=== PATIENT | female | born 1985 | race Caucasian/White ===

== ENCOUNTER 2017-11-22 13:16 | Inpatient (IN) | payer MEDICAID ==
[~2017-11-22] VITALS: Ht 160 cm; Wt 48.5 kg
[2017-11-22 13:25] VITALS: BP 138/85
[2017-11-22] MEDS ORDERED: LORazepam Inj 2mg/ml 1ml IV ONE ×2 (14:15→19:30)
[2017-11-22] MEDS ORDERED: DiphenhydrAMINE 50mg/ml Inj IVP ONE ×2 (14:15→19:30)
[2017-11-22] MEDS ORDERED: Metoclopramide 10mg/2ml Inj IVP ONE (14:15)
--- NOTE | 2017-11-22 14:53 | Emergency Room Report ---
History of Present Illness General Chief Complaint: Nausea, Vomiting, and Diarrhea Source: Patient Present Illness HPI Patient presents with complaints of nausea and vomiting Reports that last week she has smoked marijuana She smoked more than usual and since then feels that she was having marijuana poisoning as she has had multiple episodes of vomiting and diarrhea She reports being seen at several different emergency rooms And is not feeling well Denies any chest pain denies any shortness of breath denies any back or flank pain she feels dehydrated from the vomiting Denies any dysuria frequency Allergies: Coded Allergies: AMOXICILLIN (Verified Allergy, Unknown, 11/22/17) PENICILLINS (Verified Allergy, Unknown, 11/22/17) Patient History Past Medical History: see triage record Pertinent Family History: none Reviewed Nursing Documentation: PMH: Agreed; PSxH: Agreed Nursing Documentation-PMH Past Medical History: No Stated History Review of Systems All Other Systems: negative except mentioned in HPI Physical Exam Vital Signs Date Time Temp Pulse Resp B/P (MAP) Pulse Ox O2 Delivery O2 Flow Rate FiO2 11/22/17 13:15 98.6 75 18 130/81 99 Room Air 98.6 Sp02 EP Interpretation: reviewed, normal General Appearance: no apparent distress Head: normocephalic, atraumatic Eyes: bilateral eye PERRL, bilateral eye EOMI ENT: hearing grossly normal, normal pharynx, TMs + canals normal, uvula midline Neck: full range of motion, supple, no meningismus, no bony tend Respiratory: lungs clear, normal breath sounds, no rhonchi, no respiratory distress, no retraction, no accessory muscle use Cardiovascular #1: normal peripheral pulses, regular rate, rhythm, no edema, no gallop, no JVD, no murmur Gastrointestinal: normal bowel sounds, non tender, soft, no mass, no organomegaly, non-distended, no guarding, no hernia, no pulsatile mass, no rebound Genitourinary: no CVA tenderness Musculoskeletal: normal inspection Neurologic: oriented x3, responsive, correctional facility nurse III-XII nml as tested, motor strength/ tone normal, sensory intact Psychiatric: mood/affect normal Skin: normal color, no rash, warm/dry, palpation normal Lymphatic: normal inspection, no adenopathy Medical Decision Making Diagnostic Impression: Primary Impression: Nausea, vomiting, and diarrhea Additional Impressions: UTI (urinary tract infection) Persistent vomiting ER Course With the patient's history and examination, multiple differentials considered, including but not limited to , ectopic , ovarian torsion, gastritis, cholecystitis, pancreatitis, appendicitis Patient's urine sample does show positive infection Patient was given further hydration IV antibiotics On reevaluation and felt significantly better reported that she wanted to rest and her mom could pick her up Upon disposition patient's friend was contacted as she has requested a phone call, and she reported that the patient was not feeling better and was still having significant nausea At this time I spoke to the patient again who now reports that she has been feeling increasingly nauseous since she attempted oral intake And therefore the patient was requested for further inpatient care, Labs Test 11/22/17 15:00 11/22/17 15:15 Urine Color Pale yellow Urine Appearance Clear Urine pH 9 (4.5-8.0) Urine Specific [place] 1.015 (1.005-1.035) Urine Protein 2+ (NEGATIVE) Urine Glucose (UA) Negative (NEGATIVE) Urine Ketones 4+ (NEGATIVE) Urine Occult Blood Negative (NEGATIVE) Urine Nitrite Negative (NEGATIVE) Urine Bilirubin Negative (NEGATIVE) Urine Urobilinogen Normal MG/DL (0.0-1.0) Urine Leukocyte Esterase 1+ (NEGATIVE) Urine RBC 2-4 /HPF (0 - 2) Urine WBC 5-10 /HPF (0 - 2) Urine Squamous Epithelial Cells Moderate /LPF (NONE/OCC) Urine Amorphous Sediment Moderate /LPF (NONE) Urine Bacteria Moderate /HPF (NONE) Urine Yeast Few /HPF (NONE) Urine HCG, Qualitative Negative (NEGATIVE) Urine Opiates Screen Negative (NEGATIVE) Urine Barbiturates Screen Positive (NEGATIVE) Phencyclidine (PCP) Screen Negative (NEGATIVE) Urine Amphetamines Screen Negative (NEGATIVE) Urine Benzodiazepines Screen Negative (NEGATIVE) Urine Cocaine Screen Negative (NEGATIVE) Urine Marijuana (THC) Screen Positive (NEGATIVE) White Blood Count 11.7 K/UL (4.8-10.8) Red Blood Count 4.48 M/UL (4.20-5.40) Hemoglobin 13.5 G/DL (12.0-16.0) Hematocrit 39.2 % (37.0-47.0) Mean Corpuscular Volume 88 FL (80-99) Mean Corpuscular Hemoglobin 30.1 PG (27.0-31.0) Mean Corpuscular Hemoglobin Concent 34.3 G/DL (32.0-36.0) Red Cell Distribution Width 11.6 % (11.6-14.8) Platelet Count 395 K/UL (150-450) Mean Platelet Volume 6.1 FL (6.5-10.1) Neutrophils (%) (Auto) 83.9 % (45.0-75.0) Lymphocytes (%) (Auto) 10.8 % (20.0-45.0) Monocytes (%) (Auto) 4.5 % (1.0-10.0) Eosinophils (%) (Auto) 0.1 % (0.0-3.0) Basophils (%) (Auto) 0.7 % (0.0-2.0) Sodium Level 138 MMOL/L (136-145) Potassium Level 3.3 MMOL/L (3.5-5.1) Chloride Level 103 MMOL/L (98-107) Carbon Dioxide Level 22 MMOL/L (21-32) Anion Gap 13 mmol/L (5-15) Blood Urea Nitrogen 12 mg/dL (7-18) Creatinine 0.8 MG/DL (0.55-1.30) Estimat Glomerular Filtration Rate > 60 mL/min (>60) Glucose Level 131 MG/DL (74-106) Calcium Level 9.2 MG/DL (8.5-10.1) Total Bilirubin 0.9 MG/DL (0.2-1.0) Aspartate Amino Transf (AST/SGOT) 12 U/L (15-37) Alanine Aminotransferase (ALT/SGPT) 17 U/L (12-78) Alkaline Phosphatase 48 U/L (46-116) Total Protein 7.7 G/DL (6.4-8.2) Albumin 4.6 G/DL (3.4-5.0) Globulin 3.1 g/dL Albumin/Globulin Ratio 1.5 (1.0-2.7) Lipase 98 U/L (73-393) Last Vital Signs Date Time Temp Pulse Resp B/P (MAP) Pulse Ox O2 Delivery O2 Flow Rate FiO2 11/22/17 13:15 98.6 75 18 130/81 99 Room Air 98.6 Status: improved Disposition: ADMITTED INPATIENT Condition: Serious Scripts Ondansetron Odt* (ZOFRAN ODT*) 4 Mg Tab.rapdis 4 MG ORAL Q6H PRN for Nausea & Vomiting, #12 TAB 0 Refills Prov: Tor Stahl DO 11/22/17 Tor Stahl DO Nov 22, 2017 14:53
[2017-11-22 15:31] LABS: APPEARANCE,URINE CLEAR; BILIRUBIN, URINE NEGATIVE (NEGATIVE); COLOR,URINE PALE YELLOW; GLUCOSE, URINE (UA) NEGATIVE (NEGATIVE); KETONES,URINE 4+ (NEGATIVE); LEUKOCYTE ESTERASE ,URINE 1+ (NEGATIVE); NITRITE,URINE NEGATIVE (NEGATIVE); PH,URINE 9 (4.5-8.0); PROTEIN,URINE 2+ (NEGATIVE); UROBILINOGEN,URINE NORMAL MG/DL (0.0-1.0)
[2017-11-22 15:41] LABS: BASOPHILS % (AUTO) 0.7 % (0.0-2.0); EOSINOPHILS % (AUTO) 0.1 % (0.0-3.0); HEMATOCRIT 39.2 % (37.0-47.0); HEMOGLOBIN 13.5 G/DL (12.0-16.0); LYMPHOCYTES % (AUTO) 10.8 % (20.0-45.0); MEAN CORPUSCULAR VOLUME 88 FL (80-99); MONOCYTES % (AUTO) 4.5 % (1.0-10.0); NEUTROPHILS % (AUTO) 83.9 % (45.0-75.0); PLATELET COUNT 395 K/UL (150-450); RED BLOOD COUNT 4.48 M/UL (4.20-5.40); RED CELL DISTRIBUTION WIDTH 11.6 % (11.6-14.8); WHITE BLOOD COUNT 11.7 K/UL (4.8-10.8)
[2017-11-22 15:42] LABS: ANION GAP 13 mmol/L (5-15); BLOOD UREA NITROGEN 12 mg/dL (7-18); CALCIUM 9.2 MG/DL (8.5-10.1); CARBON DIOXIDE 22 MMOL/L (21-32); CHLORIDE 103 MMOL/L (98-107); CREATININE 0.8 MG/DL (0.55-1.30); POTASSIUM 3.3 MMOL/L (3.5-5.1); SODIUM 138 MMOL/L (136-145)
[2017-11-22 15:43] VITALS: BP 150/80
[2017-11-22 15:47] LABS: ALANINE AMINOTRANSFERASE 17 U/L (12-78); ALBUMIN 4.6 G/DL (3.4-5.0); ALBUMIN/GLOBULIN RATIO 1.5 (1.0-2.7); ALKALINE PHOSPHATASE 48 U/L (46-116); ASPARTATE AMINO TRANSFERASE 12 U/L (15-37); BILIRUBIN,TOTAL 0.9 MG/DL (0.2-1.0)
[2017-11-22 18:08] VITALS: BP 138/74
[2017-11-22] MEDS ORDERED: ZOFRAN ODT4 MG ORAL (18:27)
[2017-11-22 21:00] VITALS: BP 130/72
[2017-11-22] MEDS ORDERED: Mylanta II UD 30ml ORAL PRN (21:00)
[2017-11-22] MEDS ORDERED: Metoclopramide 10mg/2ml Inj IVP PRN (21:00)
[2017-11-22] MEDS ORDERED: Miralax 17gm pkt ORAL PRN (21:00)
[2017-11-22] MEDS ORDERED: Morphine Sulfate 4mg/ml Inj IVP PRN (21:00)
[2017-11-22 21:40] VITALS: BP 128/72
[2017-11-22] MEDS: D5 1/2NS 1,000 ML IV SCH (22:40)
[2017-11-22] MEDS: Heparin 5000 units/ml inj SUBQ SCH (22:42)
[2017-11-22] MEDS ORDERED: Potassium Chloride 20 MEQ in NS 275 ML IVPB ONE (23:00)
[2017-11-23 04:00] VITALS: BP 109/73
[2017-11-23 06:20] LABS: BASOPHILS % (AUTO) 0.7 % (0.0-2.0); EOSINOPHILS % (AUTO) 0.8 % (0.0-3.0); HEMATOCRIT 34.9 % (37.0-47.0); HEMOGLOBIN 12.6 G/DL (12.0-16.0); LYMPHOCYTES % (AUTO) 39.9 % (20.0-45.0); MEAN CORPUSCULAR VOLUME 88 FL (80-99); MONOCYTES % (AUTO) 7.2 % (1.0-10.0); NEUTROPHILS % (AUTO) 51.4 % (45.0-75.0); PLATELET COUNT 354 K/UL (150-450); RED BLOOD COUNT 3.97 M/UL (4.20-5.40); RED CELL DISTRIBUTION WIDTH 12.1 % (11.6-14.8); WHITE BLOOD COUNT 10.4 K/UL (4.8-10.8)
[2017-11-23 06:45] LABS: ALANINE AMINOTRANSFERASE 18 U/L (12-78); ALBUMIN 3.6 G/DL (3.4-5.0); ALBUMIN/GLOBULIN RATIO 1.3 (1.0-2.7); ALKALINE PHOSPHATASE 40 U/L (46-116); AMYLASE 41 U/L (25-115); ANION GAP 9 mmol/L (5-15); ASPARTATE AMINO TRANSFERASE 10 U/L (15-37); BILIRUBIN,TOTAL 0.9 MG/DL (0.2-1.0); BLOOD UREA NITROGEN 10 mg/dL (7-18); CALCIUM 7.9 MG/DL (8.5-10.1); CARBON DIOXIDE 24 MMOL/L (21-32); CHLORIDE 105 MMOL/L (98-107); CREATININE 0.8 MG/DL (0.55-1.30); POTASSIUM 3.4 MMOL/L (3.5-5.1); SODIUM 137 MMOL/L (136-145)
[2017-11-23] MEDS ORDERED: D5 1/2NS 1000ml IV ONE (08:52)
[2017-11-23] MEDS ORDERED: Tubing IV Secondary IV ONE (08:52)
--- NOTE | 2017-11-23 09:03 | Diagnostic Imaging Report ---
Indication: Abdominal pain Technique: Koroma-scale and duplex images of the upper abdomen were obtained Comparison: Findings: Gallbladder is unremarkable, without stones, wall thickening, nor pericholecystic fluid. Sonographic Moreira's sign is negative. Common bile duct measures to mm in diameter. No intrahepatic biliary ductal dilatation. Liver demonstrates normal echogenicity, no focal abnormality. It is slightly enlarged. Portal vein and hepatic veins are patent. Pancreas is unremarkable. Spleen is unremarkable. Left kidney measures 9.8 cm in length. Right kidney measures 10.1 cm length. Both kidneys demonstrate normal echogenicity. There is no hydronephrosis. No focal abnormality . Non-aneurysmal abdominal aorta . Impression: Borderline hepatomegaly. Otherwise unremarkable exam. Negative for gallstones, dilated ducts, or other acute or significant abnormality
[2017-11-23] MEDS: Pantoprazole Inj IV SCH (09:08)
[2017-11-23] MEDS: Heparin 5000 units/ml inj SUBQ SCH ×2 (09:20→20:17)
[2017-11-23] MEDS: D5 1/2NS 1,000 ML IV SCH ×2 (10:13→23:40)
[2017-11-23 12:00] VITALS: BP 150/78
--- NOTE | 2017-11-23 14:26 | GI Initial Consult Note ---
History of Present Illness General Date patient seen: Nov 23, 2017 Time patient seen: 14:19 Reason for Hospitalization: Nausea, Vomiting, and Diarrhea Referring physician: DAYO HEWITT Reason for Consultation: CYCLIC VOMITING SYNDROME Present Illness HPI Patient presents with complaints of nausea and vomiting Reports that last week she has smoked marijuana She smoked more than usual and since then feels that she was having marijuana poisoning as she has had multiple episodes of vomiting and diarrhea She reports being seen at several different emergency rooms And is not feeling well Denies any chest pain denies any shortness of breath denies any back or flank pain she feels dehydrated from the vomiting Denies any dysuria frequency GI consulted for emesis. Pt seen, awake A&Ox4 anxious NAD with no active s/sx of N/V/D. Last episode of emesis x 1 days. Per patient is chronic marijuana, daily use last stopped x 1 week ago prior to her multiple episodes of emesis. Denied hematemesis, coffee grounds. Patient stated she has been to multiple ED' s, given only zofran and then discharged. Previous discharge summary reviewed, patient utox positive for marijuana and barbiturates, in which the patient denies taking any additional medication. No history of endoscopy / colonoscopy. She presents with mild anemia. CT AP negative. Home Meds Active Scripts Ondansetron Odt* (ZOFRAN ODT*) 4 Mg Tab.rapdis, 4 MG ORAL Q6H PRN for Nausea & Vomiting, #12 TAB 0 Refills Prov:Tor Stahl DO 11/22/17 Med list reviewed/reconciled: Yes Allergies: Coded Allergies: AMOXICILLIN (Verified Allergy, Unknown, 11/22/17) PENICILLINS (Verified Allergy, Unknown, 11/22/17) Patient History History Provided By: Patient, Medical Record PMH Narrative Past Medical History: see triage record Pertinent Family History: none Reviewed Nursing Documentation: PMH: Agreed; PSxH: Agreed Nursing Documentation-PMH Past Medical History: No Stated History Social History: Reports: drug use Review of Systems All Other Systems: negative except mentioned in HPI Physical Exam Vital Signs Date Time Temp Pulse Resp B/P (MAP) Pulse Ox O2 Delivery O2 Flow Rate FiO2 11/22/17 13:15 98.6 75 18 130/81 99 Room Air 98.6 Sp02 EP Interpretation: reviewed, normal Labs Laboratory Tests Test 11/22/17 15:00 4/16/18 15:15 11/23/17 05:50 Urine Color Pale yellow Urine Appearance Clear Urine pH 9 (4.5-8.0) Urine Specific [place] 1.015 (1.005-1.035) Urine Protein 2+ (NEGATIVE) H Urine Glucose (UA) Negative (NEGATIVE) Urine Ketones 4+ (NEGATIVE) H Urine Occult Blood Negative (NEGATIVE) Urine Nitrite Negative (NEGATIVE) Urine Bilirubin Negative (NEGATIVE) Urine Urobilinogen Normal MG/DL (0.0-1.0) Urine Leukocyte Esterase 1+ (NEGATIVE) H Urine RBC 2-4 /HPF (0 - 2) H Urine WBC 5-10 /HPF (0 - 2) H Urine Squamous Epithelial Cells Moderate /LPF (NONE/OCC) H Urine Amorphous Sediment Moderate /LPF (NONE) H Urine Bacteria Moderate /HPF (NONE) H Urine Yeast Few /HPF (NONE) H Urine HCG, Qualitative Negative (NEGATIVE) Urine Opiates Screen Negative (NEGATIVE) Urine Barbiturates Screen Positive (NEGATIVE) H Phencyclidine (PCP) Screen Negative (NEGATIVE) Urine Amphetamines Screen Negative (NEGATIVE) Urine Benzodiazepines Screen Negative (NEGATIVE) Urine Cocaine Screen Negative (NEGATIVE) Urine Marijuana (THC) Screen Positive (NEGATIVE) H White Blood Count 11.7 K/UL (4.8-10.8) H 10.4 K/UL (4.8-10.8) Red Blood Count 4.48 M/UL (4.20-5.40) 3.97 M/UL (4.20-5.40) L Hemoglobin 13.5 G/DL (12.0-16.0) 12.6 G/DL (12.0-16.0) Hematocrit 39.2 % (37.0-47.0) 34.9 % (37.0-47.0) L Mean Corpuscular Volume 88 FL (80-99) 88 FL (80-99) Mean Corpuscular Hemoglobin 30.1 PG (27.0-31.0) 31.8 PG (27.0-31.0) H Mean Corpuscular Hemoglobin Concent 34.3 G/DL (32.0-36.0) 36.2 G/DL (32.0-36.0) H Red Cell Distribution Width 11.6 % (11.6-14.8) 12.1 % (11.6-14.8) Platelet Count 395 K/UL (150-450) 354 K/UL (150-450) Mean Platelet Volume 6.1 FL (6.5-10.1) L 6.0 FL (6.5-10.1) L Neutrophils (%) (Auto) 83.9 % (45.0-75.0) H 51.4 % (45.0-75.0) Lymphocytes (%) (Auto) 10.8 % (20.0-45.0) L 39.9 % (20.0-45.0) Monocytes (%) (Auto) 4.5 % (1.0-10.0) 7.2 % (1.0-10.0) Eosinophils (%) (Auto) 0.1 % (0.0-3.0) 0.8 % (0.0-3.0) Basophils (%) (Auto) 0.7 % (0.0-2.0) 0.7 % (0.0-2.0) Sodium Level 138 MMOL/L (136-145) 137 MMOL/L (136-145) Potassium Level 3.3 MMOL/L (3.5-5.1) L 3.4 MMOL/L (3.5-5.1) L Chloride Level 103 MMOL/L (98-107) 105 MMOL/L (98-107) Carbon Dioxide Level 22 MMOL/L (21-32) 24 MMOL/L (21-32) Anion Gap 13 mmol/L (5-15) 9 mmol/L (5-15) Blood Urea Nitrogen 12 mg/dL (7-18) 10 mg/dL (7-18) Creatinine 0.8 MG/DL (0.55-1.30) 0.8 MG/DL (0.55-1.30) Estimat Glomerular Filtration Rate > 60 mL/min (>60) > 60 mL/min (>60) Glucose Level 131 MG/DL (74-106) H 91 MG/DL (74-106) Calcium Level 9.2 MG/DL (8.5-10.1) 7.9 MG/DL (8.5-10.1) L Total Bilirubin 0.9 MG/DL (0.2-1.0) 0.9 MG/DL (0.2-1.0) Aspartate Amino Transf (AST/SGOT) 12 U/L (15-37) L 10 U/L (15-37) L Alanine Aminotransferase (ALT/SGPT) 17 U/L (12-78) 18 U/L (12-78) Alkaline Phosphatase 48 U/L (46-116) 40 U/L (46-116) L Total Protein 7.7 G/DL (6.4-8.2) 6.4 G/DL (6.4-8.2) Albumin 4.6 G/DL (3.4-5.0) 3.6 G/DL (3.4-5.0) Globulin 3.1 g/dL 2.8 g/dL Albumin/Globulin Ratio 1.5 (1.0-2.7) 1.3 (1.0-2.7) Lipase 98 U/L (73-393) 87 U/L (73-393) Activated Partial Thromboplast Time 32 SEC (23-33) Amylase Level 41 U/L (25-115) General Appearance: well appearing, no apparent distress, alert, thin Head: normocephalic EENT: PERRL/EOMI, normal ENT inspection Neck: supple Respiratory: normal breath sounds, no respiratory distress Cardiovascular: normal rate Gastrointestinal: normal inspection, non tender, soft, normal bowel sounds, non -distended Rectal: deferred Genitourinary: no CVA tenderness Musculoskeletal: normal inspection, back normal Neurologic: normal inspection, alert, oriented x3, responsive Psychiatric: normal inspection, judgement/insight normal, memory normal Skin: normal inspection, normal color, no rash, warm/dry, palpation normal, well hydrated Lymphatic: normal inspection, no adenopathy Current Medications Current Medications Medications (Trade) Dose Ordered Sig/Gracie Route PRN Reason Start Time Stop Time Status Last Admin Dose Admin Acetaminophen (Tylenol) 650 mg Q4H PRN ORAL fever 11/22/17 21:00 12/22/17 20:59 Al Hydroxide/Mg Hydroxide (Mylanta II) 30 ml Q6H PRN ORAL dyspepsia 11/22/17 21:00 12/22/17 20:59 Dextrose (Dextrose 50%) 50 ml STAT PRN IV BS less than 60mg/dl 11/22/17 21:00 12/22/17 20:59 Dextrose/Sodium Chloride 1,000 ml @ 75 mls/hr [id number] IV 11/22/17 20:53 12/22/17 20:52 11/23/17 10:13 Diphenhydramine HCl (Benadryl) 25 mg Q6H PRN ORAL Itching/Pruritis 11/22/17 21:00 12/22/17 20:59 Heparin Sodium (Porcine) (Heparin 5000 units/ml) 5,000 units EVERY 12 HOURS SUBQ 11/22/17 21:00 12/22/17 20:59 11/23/17 09:20 Lorazepam (Ativan 2mg/ml 1ml) 1 mg EVERY 4 HOURS PRN IV agitation 11/22/17 21:00 11/29/17 20:59 Metoclopramide HCl (Reglan) 10 mg EVERY 6 HOURS PRN IVP servere nauasea 11/22/17 21:00 12/22/17 20:59 Morphine Sulfate (Morphine Sulfate) 2 mg EVERY 4 HOURS PRN IVP severe Pain (Pain Scale 7-10) 11/22/17 21:00 11/29/17 20:59 Nitroglycerin (Ntg) 0.4 mg Q5M X 3 DOSES PRN SL Prn Chest Pain 11/22/17 21:00 12/22/17 20:59 Ondansetron HCl (Zofran) 4 mg Q6H PRN IVP Nausea & Vomiting 11/22/17 21:00 12/22/17 20:59 Pantoprazole (Protonix) 40 mg DAILY IV 11/23/17 09:00 12/23/17 08:59 11/23/17 09:08 Polyethylene Glycol (Miralax) 17 gm HSPRN PRN ORAL Constipation 11/22/17 21:00 12/22/17 20:59 Promethazine HCl (Phenergan) 25 mg EVERY 8 HOURS PRN IV refractory nausea 11/22/17 21:00 12/22/17 20:59 Temazepam (Restoril) 15 mg HSPRN PRN ORAL Insomnia 11/22/17 21:00 11/29/17 20:59 GI: Plan Problems: (1) Cyclic vomiting syndrome (2) Persistent vomiting (3) Nausea, vomiting, and diarrhea Plan abdominal US reviewed >> unremarkable Utox >> positive for MJ and barbiturates UCx negative symptomatic treatment zofran prn, reglan for persistent vomiting adv to regular diet electrolyte replacement MJ cessation education given ppi daily fu labs Discussed with Dr. Negro. Thank you for this patient referral, we will follow. Sherine Tabor N.P. Nov 23, 2017 14:26
--- NOTE | 2017-11-23 14:32 | History and Physical ---
History of Present Illness General Date patient seen: Nov 23, 2017 Reason for Hospitalization: Nausea, Vomiting, and Diarrhea Present Illness HPI 32 year old female with PMHx of cyclical vomiting presented to ER with complaints of nausea and vomiting after she smoked marijuana She smoked more than usual and since then feels that she was having marijuana poisoning. She reports being seen at several different emergency rooms. She is admitted for intractabel nausea and vomiting and not being able to eat. Allergies: Coded Allergies: AMOXICILLIN (Verified Allergy, Unknown, 11/22/17) PENICILLINS (Verified Allergy, Unknown, 11/22/17) Medication History Scheduled PRN Ondansetron Odt* (Zofran Odt*), 4 MG ORAL Q6H PRN for Nausea & Vomiting Patient History Healthcare decision maker Resuscitation status Full Code Advanced Directive on File No Past Medical/Surgical History Past Medical/Surgical History: (1) Persistent vomiting Review of Systems All Other Systems: negative except mentioned in HPI Physical Exam General Appearance: WD/WN Lines, tubes and drains: peripheral HEENT: normocephalic Neck: non-tender, normal alignment Respiratory/Chest: chest wall non-tender, normal breath sounds Cardiovascular/Chest: normal peripheral pulses, normal rate Abdomen: normal bowel sounds, non tender Genitourinary/Rectal: normal genital exam Skin Exam: normal pigmentation Neurologic: prescriptionist II-XII grossly normal Last 24 Hour Vital Signs Date Time Temp Pulse Resp B/P (MAP) Pulse Ox O2 Delivery O2 Flow Rate FiO2 11/23/17 12:00 97.7 75 18 150/78 99 Room Air 97.7 11/23/17 04:00 97.7 70 16 109/73 97 Room Air 97.7 11/22/17 21:55 98.1 70 17 128/72 99 Room Air 98.1 11/22/17 21:40 98.1 70 17 128/72 99 Room Air 98.1 11/22/17 21:00 98.4 72 16 130/72 98 Room Air 98.4 11/22/17 18:08 98.6 75 18 138/74 97 Room Air 98.6 11/22/17 15:43 98.6 78 18 150/80 99 Room Air 98.6 Intake and Output 11/22/17 11/23/17 19:00 07:00 Intake Total 700 ml Balance 700 ml Intake IV Total 700 ml # Voids 1 1 Laboratory Tests Test 11/22/17 15:00 11/22/17 15:15 11/23/17 05:50 Urine Color Pale yellow Urine Appearance Clear Urine pH 9 (4.5-8.0) Urine Specific [place] 1.015 (1.005-1.035) Urine Protein 2+ (NEGATIVE) H Urine Glucose (UA) Negative (NEGATIVE) Urine Ketones 4+ (NEGATIVE) H Urine Occult Blood Negative (NEGATIVE) Urine Nitrite Negative (NEGATIVE) Urine Bilirubin Negative (NEGATIVE) Urine Urobilinogen Normal MG/DL (0.0-1.0) Urine Leukocyte Esterase 1+ (NEGATIVE) H Urine RBC 2-4 /HPF (0 - 2) H Urine WBC 5-10 /HPF (0 - 2) H Urine Squamous Epithelial Cells Moderate /LPF (NONE/OCC) H Urine Amorphous Sediment Moderate /LPF (NONE) H Urine Bacteria Moderate /HPF (NONE) H Urine Yeast Few /HPF (NONE) H Urine HCG, Qualitative Negative (NEGATIVE) Urine Opiates Screen Negative (NEGATIVE) Urine Barbiturates Screen Positive (NEGATIVE) H Phencyclidine (PCP) Screen Negative (NEGATIVE) Urine Amphetamines Screen Negative (NEGATIVE) Urine Benzodiazepines Screen Negative (NEGATIVE) Urine Cocaine Screen Negative (NEGATIVE) Urine Marijuana (THC) Screen Positive (NEGATIVE) H White Blood Count 11.7 K/UL (4.8-10.8) H 10.4 K/UL (4.8-10.8) Red Blood Count 4.48 M/UL (4.20-5.40) 3.97 M/UL (4.20-5.40) L Hemoglobin 13.5 G/DL (12.0-16.0) 12.6 G/DL (12.0-16.0) Hematocrit 39.2 % (37.0-47.0) 34.9 % (37.0-47.0) L Mean Corpuscular Volume 88 FL (80-99) 88 FL (80-99) Mean Corpuscular Hemoglobin 30.1 PG (27.0-31.0) 31.8 PG (27.0-31.0) H Mean Corpuscular Hemoglobin Concent 34.3 G/DL (32.0-36.0) 36.2 G/DL (32.0-36.0) H Red Cell Distribution Width 11.6 % (11.6-14.8) 12.1 % (11.6-14.8) Platelet Count 395 K/UL (150-450) 354 K/UL (150-450) Mean Platelet Volume 6.1 FL (6.5-10.1) L 6.0 FL (6.5-10.1) L Neutrophils (%) (Auto) 83.9 % (45.0-75.0) H 51.4 % (45.0-75.0) Lymphocytes (%) (Auto) 10.8 % (20.0-45.0) L 39.9 % (20.0-45.0) Monocytes (%) (Auto) 4.5 % (1.0-10.0) 7.2 % (1.0-10.0) Eosinophils (%) (Auto) 0.1 % (0.0-3.0) 0.8 % (0.0-3.0) Basophils (%) (Auto) 0.7 % (0.0-2.0) 0.7 % (0.0-2.0) Sodium Level 138 MMOL/L (136-145) 137 MMOL/L (136-145) Potassium Level 3.3 MMOL/L (3.5-5.1) L 3.4 MMOL/L (3.5-5.1) L Chloride Level 103 MMOL/L (98-107) 105 MMOL/L (98-107) Carbon Dioxide Level 22 MMOL/L (21-32) 24 MMOL/L (21-32) Anion Gap 13 mmol/L (5-15) 9 mmol/L (5-15) Blood Urea Nitrogen 12 mg/dL (7-18) 10 mg/dL (7-18) Creatinine 0.8 MG/DL (0.55-1.30) 0.8 MG/DL (0.55-1.30) Estimat Glomerular Filtration Rate > 60 mL/min (>60) > 60 mL/min (>60) Glucose Level 131 MG/DL (74-106) H 91 MG/DL (74-106) Calcium Level 9.2 MG/DL (8.5-10.1) 7.9 MG/DL (8.5-10.1) L Total Bilirubin 0.9 MG/DL (0.2-1.0) 0.9 MG/DL (0.2-1.0) Aspartate Amino Transf (AST/SGOT) 12 U/L (15-37) L 10 U/L (15-37) L Alanine Aminotransferase (ALT/SGPT) 17 U/L (12-78) 18 U/L (12-78) Alkaline Phosphatase 48 U/L (46-116) 40 U/L (46-116) L Total Protein 7.7 G/DL (6.4-8.2) 6.4 G/DL (6.4-8.2) Albumin 4.6 G/DL (3.4-5.0) 3.6 G/DL (3.4-5.0) Globulin 3.1 g/dL 2.8 g/dL Albumin/Globulin Ratio 1.5 (1.0-2.7) 1.3 (1.0-2.7) Lipase 98 U/L (73-393) 87 U/L (73-393) Activated Partial Thromboplast Time 32 SEC (23-33) Amylase Level 41 U/L (25-115) Microbiology Date/Time Source Procedure Growth Status 11/22/17 15:00 Urine,Clean Catch Urine Culture - Preliminary Resulted Height (Feet): 5 Height (Inches): 3.00 Weight (Pounds): 107 Medications Current Medications Medications (Trade) Dose Ordered Sig/Gracie Route PRN Reason Start Time Stop Time Status Last Admin Dose Admin Acetaminophen (Tylenol) 650 mg Q4H PRN ORAL fever 11/22/17 21:00 12/22/17 20:59 Al Hydroxide/Mg Hydroxide (Mylanta II) 30 ml Q6H PRN ORAL dyspepsia 11/22/17 21:00 12/22/17 20:59 Dextrose (Dextrose 50%) 50 ml STAT PRN IV BS less than 60mg/dl 11/22/17 21:00 12/22/17 20:59 Dextrose/Sodium Chloride 1,000 ml @ 75 mls/hr [id number] IV 11/22/17 20:53 12/22/17 20:52 11/23/17 10:13 Diphenhydramine HCl (Benadryl) 25 mg Q6H PRN ORAL Itching/Pruritis 11/22/17 21:00 12/22/17 20:59 Heparin Sodium (Porcine) (Heparin 5000 units/ml) 5,000 units EVERY 12 HOURS SUBQ 11/22/17 21:00 12/22/17 20:59 11/23/17 09:20 Lorazepam (Ativan 2mg/ml 1ml) 1 mg EVERY 4 HOURS PRN IV agitation 11/22/17 21:00 11/29/17 20:59 Metoclopramide HCl (Reglan) 10 mg EVERY 6 HOURS PRN IVP servere nauasea 11/22/17 21:00 12/22/17 20:59 Morphine Sulfate (Morphine Sulfate) 2 mg EVERY 4 HOURS PRN IVP severe Pain (Pain Scale 7-10) 11/22/17 21:00 11/29/17 20:59 Nitroglycerin (Ntg) 0.4 mg Q5M X 3 DOSES PRN SL Prn Chest Pain 11/22/17 21:00 12/22/17 20:59 Ondansetron HCl (Zofran) 4 mg Q6H PRN IVP Nausea & Vomiting 11/22/17 21:00 12/22/17 20:59 Pantoprazole (Protonix) 40 mg DAILY IV 11/23/17 09:00 12/23/17 08:59 11/23/17 09:08 Polyethylene Glycol (Miralax) 17 gm HSPRN PRN ORAL Constipation 11/22/17 21:00 12/22/17 20:59 Promethazine HCl (Phenergan) 25 mg EVERY 8 HOURS PRN IV refractory nausea 11/22/17 21:00 12/22/17 20:59 Temazepam (Restoril) 15 mg HSPRN PRN ORAL Insomnia 11/22/17 21:00 11/29/17 20:59 Assessment/Plan Problem List: (1) Persistent vomiting ICD Codes: R11.10 - Vomiting, unspecified SNOMED: 508423124 (2) Cyclic vomiting syndrome ICD Codes: G43.A0 - Cyclical vomiting, not intractable SNOMED: 54306104 Assessment/Plan NPO iv fluids symptomatic treatment GI evaluation Lexx Melissa MD Nov 23, 2017 14:32
[2017-11-23 16:00] VITALS: BP 123/75
[2017-11-23 20:00] VITALS: BP 135/92
[2017-11-23] MEDS ORDERED: GI Cocktail 120ml ORAL SCH (22:00)
[2017-11-24] VITALS (8 sets, daily range): BP systolic 88–145; BP diastolic 57–89
[2017-11-24] MEDS: LORazepam Inj 2mg/ml 1ml IV PRN ×2 (02:38→09:01)
[2017-11-24] MEDS: Pantoprazole Inj IV SCH (08:08)
[2017-11-24] MEDS: Heparin 5000 units/ml inj SUBQ SCH ×2 (08:11→20:16)
[2017-11-24] MEDS ORDERED: D5 1/2NS 1000ml IV ONE ×2 (09:49→16:58)
--- NOTE | 2017-11-24 09:53 | GI Progress Note ---
Assessment/Plan Problems: (1) Nausea, vomiting, and diarrhea ICD Codes: R11.2 - Nausea with vomiting, unspecified; R19.7 - Diarrhea, unspecified SNOMED: 3068042 (2) Persistent vomiting ICD Codes: R11.10 - Vomiting, unspecified SNOMED: 243680531 (3) Cyclic vomiting syndrome ICD Codes: G43.A0 - Cyclical vomiting, not intractable SNOMED: 94849696 Status: stable Status Narrative Discussed with Dr. Negro. Assessment/Plan abdominal US reviewed >> unremarkable Utox >> positive for MJ and barbiturates UCx negative symptomatic treatment zofran prn, reglan ATC for persistent vomiting adv to regular diet electrolyte replacement MJ cessation education given ppi daily fu labs Subjective Subjective had episode of emesis this morning Objective Last 24 Hour Vital Signs Date Time Temp Pulse Resp B/P (MAP) Pulse Ox O2 Delivery O2 Flow Rate FiO2 11/24/17 08:00 97.4 74 20 111/73 100 Room Air 97.4 11/24/17 04:00 98.4 63 18 127/74 100 Room Air 98.4 11/24/17 00:00 97.6 62 19 126/77 99 Room Air 97.6 11/23/17 20:00 98.2 65 20 135/92 100 Room Air 98.2 11/23/17 19:07 98.3 11/23/17 16:00 98.3 112 18 123/75 98 Room Air 98.3 11/23/17 12:00 97.7 75 18 150/78 99 Room Air 97.7 Intake and Output 11/23/17 11/24/17 19:00 07:00 Intake Total 1425 ml 962.5 ml Balance 1425 ml 962.5 ml Intake Oral 600 ml 100 ml IV Total 825 ml 862.5 ml # Voids 2 2 Height (Feet): 5 Height (Inches): 3.00 Weight (Pounds): 107 General Appearance: WD/WN, no apparent distress, alert Cardiovascular: normal rate Respiratory/Chest: normal breath sounds, no respiratory distress Abdominal Exam: normal bowel sounds, non tender, soft Extremities: normal range of motion, non-tender Sherine Tabor N.P. Nov 24, 2017 09:53
[2017-11-24] MEDS: D5 1/2NS 1,000 ML IV SCH (11:38)
--- NOTE | 2017-11-24 11:57 | Pulmonology Progress Note ---
Assessment/Plan Problems: (1) Persistent vomiting (2) Cyclic vomiting syndrome Assessment/Plan still can't eat iv fluids water only Subjective Constitutional: Reports: no symptoms Respiratory: Reports: no symptoms Allergies: Coded Allergies: AMOXICILLIN (Verified Allergy, Unknown, 11/22/17) PENICILLINS (Verified Allergy, Unknown, 11/22/17) Objective Last 24 Hour Vital Signs Date Time Temp Pulse Resp B/P (MAP) Pulse Ox O2 Delivery O2 Flow Rate FiO2 11/24/17 11:38 98.4 64 16 118/75 99 Room Air 98.4 11/24/17 08:00 97.4 74 20 111/73 100 Room Air 97.4 11/24/17 04:00 98.4 63 18 127/74 100 Room Air 98.4 11/24/17 00:00 97.6 62 19 126/77 99 Room Air 97.6 11/23/17 20:00 98.2 65 20 135/92 100 Room Air 98.2 11/23/17 19:07 98.3 11/23/17 16:00 98.3 112 18 123/75 98 Room Air 98.3 11/23/17 12:00 97.7 75 18 150/78 99 Room Air 97.7 Intake and Output 11/23/17 11/24/17 19:00 07:00 Intake Total 1425 ml 962.5 ml Balance 1425 ml 962.5 ml Intake Oral 600 ml 100 ml IV Total 825 ml 862.5 ml # Voids 2 2 General Appearance: WD/WN HEENT: normocephalic, atraumatic Respiratory/Chest: chest wall non-tender, lungs clear Cardiovascular: normal rate, regularly irregular Genitourinary: normal external genitalia Extremities: no clubbing Skin: no lesions Microbiology Date/Time Source Procedure Growth Status 11/22/17 15:00 Urine,Clean Catch Urine Culture - Preliminary Mixed Gram Positive Organism Resulted Current Medications Medications (Trade) Dose Ordered Sig/Gracie Route PRN Reason Start Time Stop Time Status Last Admin Dose Admin Acetaminophen (Tylenol) 650 mg Q4H PRN ORAL fever 11/22/17 21:00 12/22/17 20:59 Al Hydroxide/Mg Hydroxide (Mylanta II) 30 ml Q6H PRN ORAL dyspepsia 11/22/17 21:00 12/22/17 20:59 Dextrose (Dextrose 50%) 25 ml STAT PRN IV BS 60-69mg/dl 11/23/17 16:00 12/23/17 15:59 Dextrose (Dextrose 50%) 50 ml STAT PRN IV BS less than 60mg/dl 11/22/17 21:00 12/22/17 20:59 Dextrose/Sodium Chloride 1,000 ml @ 75 mls/hr [id number] IV 11/22/17 20:53 12/22/17 20:52 11/24/17 11:38 Diphenhydramine HCl (Benadryl) 25 mg Q6H PRN ORAL Itching/Pruritis 11/22/17 21:00 12/22/17 20:59 Heparin Sodium (Porcine) (Heparin 5000 units/ml) 5,000 units EVERY 12 HOURS SUBQ 11/22/17 21:00 12/22/17 20:59 11/24/17 08:11 Lorazepam (Ativan 2mg/ml 1ml) 1 mg EVERY 4 HOURS PRN IV agitation 11/22/17 21:00 11/29/17 20:59 11/24/17 09:01 Metoclopramide HCl (Reglan) 5 mg QID ORAL 11/24/17 13:00 12/24/17 12:59 Metoclopramide HCl (Reglan) 10 mg EVERY 6 HOURS PRN IVP servere nauasea 11/22/17 21:00 12/22/17 20:59 Morphine Sulfate (Morphine Sulfate) 2 mg EVERY 4 HOURS PRN IVP severe Pain (Pain Scale 7-10) 11/22/17 21:00 11/29/17 20:59 11/23/17 19:07 Nitroglycerin (Ntg) 0.4 mg Q5M X 3 DOSES PRN SL Prn Chest Pain 11/22/17 21:00 12/22/17 20:59 Ondansetron HCl (Zofran) 4 mg Q6H PRN IVP Nausea & Vomiting 11/22/17 21:00 12/22/17 20:59 11/24/17 08:39 Pantoprazole (Protonix) 40 mg DAILY IV 11/23/17 09:00 12/23/17 08:59 11/24/17 08:08 Polyethylene Glycol (Miralax) 17 gm HSPRN PRN ORAL Constipation 11/22/17 21:00 12/22/17 20:59 Temazepam (Restoril) 15 mg HSPRN PRN ORAL Insomnia 11/22/17 21:00 11/29/17 20:59 11/23/17 22:04 Lexx Melissa MD Nov 24, 2017 11:57
[2017-11-24] MEDS ORDERED: Sodium Chloride 500ML 500 ML IV ONE (17:00)
[2017-11-25] MEDS: D5 1/2NS 1,000 ML IV SCH ×2 (02:13→15:45)
[2017-11-25 04:00] VITALS: BP 111/65
[2017-11-25 06:20] LABS: BASOPHILS % (AUTO) 0.7 % (0.0-2.0); EOSINOPHILS % (AUTO) 0.5 % (0.0-3.0); HEMATOCRIT 36.7 % (37.0-47.0); HEMOGLOBIN 12.8 G/DL (12.0-16.0); LYMPHOCYTES % (AUTO) 42.5 % (20.0-45.0); MEAN CORPUSCULAR VOLUME 89 FL (80-99); MONOCYTES % (AUTO) 8.2 % (1.0-10.0); NEUTROPHILS % (AUTO) 48.1 % (45.0-75.0); PLATELET COUNT 355 K/UL (150-450); RED BLOOD COUNT 4.11 M/UL (4.20-5.40); WHITE BLOOD COUNT 8.6 K/UL (4.8-10.8)
[2017-11-25 06:30] LABS: ALANINE AMINOTRANSFERASE 13 U/L (12-78); ALBUMIN 3.5 G/DL (3.4-5.0); ALBUMIN/GLOBULIN RATIO 1.2 (1.0-2.7); ALKALINE PHOSPHATASE 43 U/L (46-116); ANION GAP 5 mmol/L (5-15); ASPARTATE AMINO TRANSFERASE 8 U/L (15-37); BILIRUBIN,TOTAL 0.9 MG/DL (0.2-1.0); BLOOD UREA NITROGEN 3 mg/dL (7-18); CALCIUM 8.2 MG/DL (8.5-10.1); CARBON DIOXIDE 29 MMOL/L (21-32); CHLORIDE 104 MMOL/L (98-107); CREATININE 0.8 MG/DL (0.55-1.30); PHOSPHORUS 4.2 MG/DL (2.5-4.9); POTASSIUM 3.2 MMOL/L (3.5-5.1); SODIUM 138 MMOL/L (136-145)
[2017-11-25 08:00] VITALS: BP 105/70
[2017-11-25] MEDS ORDERED: Morphine Sulfate 4mg/ml Inj IVP PRN (08:45)
[2017-11-25] MEDS: Pantoprazole Inj IV SCH (08:54)
[2017-11-25] MEDS: Heparin 5000 units/ml inj SUBQ SCH ×2 (09:01→21:08)
--- NOTE | 2017-11-25 10:04 | GI Progress Note ---
Assessment/Plan Problems: (1) Nausea, vomiting, and diarrhea ICD Codes: R11.2 - Nausea with vomiting, unspecified; R19.7 - Diarrhea, unspecified SNOMED: 4872256 (2) Persistent vomiting ICD Codes: R11.10 - Vomiting, unspecified SNOMED: 044086049 (3) Cyclic vomiting syndrome ICD Codes: G43.A0 - Cyclical vomiting, not intractable SNOMED: 43572693 Status: not improved, unchanged Status Narrative Discussed with Dr. Negro. Assessment/Plan abdominal US reviewed >> unremarkable Utox >> positive for MJ and barbiturates UCx negative symptomatic treatment zofran prn, reglan ATC for persistent vomiting still on FLD electrolyte replacement MJ cessation education given ppi daily dc morphine fu labs Subjective Subjective had another episode of emesis this morning Objective Last 24 Hour Vital Signs Date Time Temp Pulse Resp B/P (MAP) Pulse Ox O2 Delivery O2 Flow Rate FiO2 11/25/17 08:53 98.2 11/25/17 08:00 98.2 77 18 105/70 99 98.2 11/25/17 04:00 98.3 66 18 111/65 100 Room Air 98.3 11/24/17 23:55 98.2 85 18 128/75 100 Room Air 98.2 11/24/17 20:00 98.5 79 18 145/75 100 Room Air 98.5 11/24/17 18:15 76 130/89 11/24/17 15:34 98.1 72 18 88/57 100 Room Air 98.1 11/24/17 11:38 98.4 64 16 118/75 99 Room Air 98.4 Intake and Output 11/24/17 11/25/17 19:00 07:00 Intake Total 1407.5 ml 1325 ml Balance 1407.5 ml 1325 ml Intake Oral 120 ml 500 ml IV Total 1287.5 ml 825 ml # Voids 3 4 # Bowel Movements 1 Laboratory Tests Test 11/25/17 05:35 White Blood Count 8.6 K/UL (4.8-10.8) Red Blood Count 4.11 M/UL (4.20-5.40) L Hemoglobin 12.8 G/DL (12.0-16.0) Hematocrit 36.7 % (37.0-47.0) L Mean Corpuscular Volume 89 FL (80-99) Mean Corpuscular Hemoglobin 31.2 PG (27.0-31.0) H Mean Corpuscular Hemoglobin Concent 34.9 G/DL (32.0-36.0) Red Cell Distribution Width 12.0 % (11.6-14.8) Platelet Count 355 K/UL (150-450) Mean Platelet Volume 6.0 FL (6.5-10.1) L Neutrophils (%) (Auto) 48.1 % (45.0-75.0) Lymphocytes (%) (Auto) 42.5 % (20.0-45.0) Monocytes (%) (Auto) 8.2 % (1.0-10.0) Eosinophils (%) (Auto) 0.5 % (0.0-3.0) Basophils (%) (Auto) 0.7 % (0.0-2.0) Sodium Level 138 MMOL/L (136-145) Potassium Level 3.2 MMOL/L (3.5-5.1) L Chloride Level 104 MMOL/L (98-107) Carbon Dioxide Level 29 MMOL/L (21-32) Anion Gap 5 mmol/L (5-15) Blood Urea Nitrogen 3 mg/dL (7-18) L Creatinine 0.8 MG/DL (0.55-1.30) Estimat Glomerular Filtration Rate > 60 mL/min (>60) Glucose Level 104 MG/DL (74-106) Calcium Level 8.2 MG/DL (8.5-10.1) L Phosphorus Level 4.2 MG/DL (2.5-4.9) Magnesium Level 1.9 MG/DL (1.8-2.4) Total Bilirubin 0.9 MG/DL (0.2-1.0) Aspartate Amino Transf (AST/SGOT) 8 U/L (15-37) L Alanine Aminotransferase (ALT/SGPT) 13 U/L (12-78) Alkaline Phosphatase 43 U/L (46-116) L Total Protein 6.3 G/DL (6.4-8.2) L Albumin 3.5 G/DL (3.4-5.0) Globulin 2.8 g/dL Albumin/Globulin Ratio 1.2 (1.0-2.7) Height (Feet): 5 Height (Inches): 3.00 Weight (Pounds): 107 General Appearance: WD/WN, no apparent distress, alert, thin Cardiovascular: normal rate Respiratory/Chest: normal breath sounds, no respiratory distress Abdominal Exam: normal bowel sounds, non tender, soft Extremities: normal range of motion, non-tender Sherine Tabor N.P. Nov 25, 2017 10:04
[2017-11-25] MEDS: Norco 5mg/325mg tab ORAL PRN ×2 (10:52→17:09)
[2017-11-25 12:00] VITALS: BP 139/89
[2017-11-25] MEDS: LORazepam Inj 2mg/ml 1ml IV PRN (12:48)
--- NOTE | 2017-11-25 14:56 | Pulmonology Progress Note ---
Assessment/Plan Problems: (1) Persistent vomiting (2) Cyclic vomiting syndrome Assessment/Plan try to eat liquid diet this morning but couldn't still can't eat iv fluids Subjective ROS Limited/Unobtainable: No Constitutional: Reports: no symptoms HEENT: Repors: no symptoms Respiratory: Reports: no symptoms Allergies: Coded Allergies: AMOXICILLIN (Verified Allergy, Unknown, 11/22/17) PENICILLINS (Verified Allergy, Unknown, 11/22/17) Objective Last 24 Hour Vital Signs Date Time Temp Pulse Resp B/P (MAP) Pulse Ox O2 Delivery O2 Flow Rate FiO2 11/25/17 12:00 98.0 66 17 139/89 99 98.0 11/25/17 11:51 98.2 11/25/17 10:52 98.2 11/25/17 09:23 98.2 11/25/17 08:53 98.2 11/25/17 08:00 98.2 77 18 105/70 99 98.2 11/25/17 04:00 98.3 66 18 111/65 100 Room Air 98.3 11/24/17 23:55 98.2 85 18 128/75 100 Room Air 98.2 11/24/17 20:00 98.5 79 18 145/75 100 Room Air 98.5 11/24/17 18:15 76 130/89 11/24/17 15:34 98.1 72 18 88/57 100 Room Air 98.1 Intake and Output 11/24/17 11/25/17 19:00 07:00 Intake Total 1407.5 ml 1325 ml Balance 1407.5 ml 1325 ml Intake Oral 120 ml 500 ml IV Total 1287.5 ml 825 ml # Voids 3 4 # Bowel Movements 1 General Appearance: WD/WN HEENT: normocephalic, atraumatic Respiratory/Chest: chest wall non-tender Cardiovascular: normal rate Abdomen: normal bowel sounds, soft, non tender Genitourinary: normal external genitalia Extremities: no clubbing Skin: no rash Microbiology Date/Time Source Procedure Growth Status 11/22/17 19:30 Nasal Nares MRSA Culture - Final NO METHICILLIN RESISTANT STAPH AUREUS... Complete 11/22/17 15:00 Urine,Clean Catch Urine Culture - Final Mixed Gram Positive Organism Complete 11/22/17 19:30 Rectum VRE Culture - Final NO VANCOMYCIN RESISTANT ENTEROCOCCUS ... Complete Laboratory Tests 11/25/17 05:35: White Blood Count 8.6, Red Blood Count 4.11L, Hemoglobin 12.8, Hematocrit 36.7L , Mean Corpuscular Volume 89, Mean Corpuscular Hemoglobin 31.2H, Mean Corpuscular Hemoglobin Concent 34.9, Red Cell Distribution Width 12.0, Platelet Count 355, Mean Platelet Volume 6.0L, Neutrophils (%) (Auto) 48.1, Lymphocytes ( %) (Auto) 42.5, Monocytes (%) (Auto) 8.2, Eosinophils (%) (Auto) 0.5, Basophils (%) (Auto) 0.7, Sodium Level 138, Potassium Level 3.2L, Chloride Level 104, Carbon Dioxide Level 29, Anion Gap 5, Blood Urea Nitrogen 3L, Creatinine 0.8, Estimat Glomerular Filtration Rate > 60, Glucose Level 104, Calcium Level 8.2L, Phosphorus Level 4.2, Magnesium Level 1.9, Total Bilirubin 0.9, Aspartate Amino Transf (AST/SGOT) 8L, Alanine Aminotransferase (ALT/SGPT) 13, Alkaline Phosphatase 43L, Total Protein 6.3L, Albumin 3.5, Globulin 2.8, Albumin/ Globulin Ratio 1.2 Current Medications Medications (Trade) Dose Ordered Sig/Gracie Route PRN Reason Start Time Stop Time Status Last Admin Dose Admin Acetaminophen (Tylenol) 650 mg Q4H PRN ORAL fever 11/22/17 21:00 12/22/17 20:59 Acetaminophen/ Hydrocodone Bitart ([place] 5/325) 1 tab Q4H PRN ORAL Moderate Pain (Pain Scale 4-6) 11/25/17 10:15 12/02/17 10:14 11/25/17 10:52 Al Hydroxide/Mg Hydroxide (Mylanta II) 30 ml Q6H PRN ORAL dyspepsia 11/22/17 21:00 12/22/17 20:59 Dextrose (Dextrose 50%) 25 ml STAT PRN IV BS 60-69mg/dl 11/23/17 16:00 12/23/17 15:59 Dextrose (Dextrose 50%) 50 ml STAT PRN IV BS less than 60mg/dl 11/22/17 21:00 12/22/17 20:59 Dextrose/Sodium Chloride 1,000 ml @ 75 mls/hr [id number] IV 11/22/17 20:53 12/22/17 20:52 11/25/17 02:13 Diphenhydramine HCl (Benadryl) 25 mg Q6H PRN ORAL Itching/Pruritis 11/22/17 21:00 12/22/17 20:59 Heparin Sodium (Porcine) (Heparin 5000 units/ml) 5,000 units EVERY 12 HOURS SUBQ 11/22/17 21:00 12/22/17 20:59 11/25/17 09:01 Lorazepam (Ativan 2mg/ml 1ml) 1 mg EVERY 4 HOURS PRN IV agitation 11/22/17 21:00 11/29/17 20:59 11/25/17 12:48 Metoclopramide HCl (Reglan) 5 mg QID ORAL 11/24/17 13:00 12/24/17 12:59 11/25/17 12:51 Metoclopramide HCl (Reglan) 10 mg EVERY 6 HOURS PRN IVP servere nauasea 11/22/17 21:00 12/22/17 20:59 Nitroglycerin (Ntg) 0.4 mg Q5M X 3 DOSES PRN SL Prn Chest Pain 11/22/17 21:00 12/22/17 20:59 Ondansetron HCl (Zofran) 4 mg Q6H PRN IVP Nausea & Vomiting 11/22/17 21:00 12/22/17 20:59 11/25/17 07:55 Pantoprazole (Protonix) 40 mg DAILY IV 11/23/17 09:00 12/23/17 08:59 11/25/17 08:54 Polyethylene Glycol (Miralax) 17 gm HSPRN PRN ORAL Constipation 11/22/17 21:00 12/22/17 20:59 Temazepam (Restoril) 15 mg HSPRN PRN ORAL Insomnia 11/22/17 21:00 11/29/17 20:59 11/23/17 22:04 Lexx Melissa MD Nov 25, 2017 14:56
[2017-11-25 16:00] VITALS: BP 114/71
[2017-11-25 20:00] VITALS: BP 118/80
[2017-11-26] MEDS ORDERED: Norco 5mg/325mg tab ORAL PRN (00:15)
[2017-11-26 04:00] VITALS: BP 118/59
[2017-11-26] MEDS: D5 1/2NS 1,000 ML IV SCH ×2 (04:53→18:23)
[2017-11-26 06:24] LABS: BASOPHILS % (AUTO) 1.2 % (0.0-2.0); EOSINOPHILS % (AUTO) 3.9 % (0.0-3.0); HEMOGLOBIN 12.7 G/DL (12.0-16.0); LYMPHOCYTES % (AUTO) 43.9 % (20.0-45.0); MEAN CORPUSCULAR VOLUME 89 FL (80-99); MONOCYTES % (AUTO) 8.3 % (1.0-10.0); NEUTROPHILS % (AUTO) 42.7 % (45.0-75.0); PLATELET COUNT 349 K/UL (150-450); RED BLOOD COUNT 4.13 M/UL (4.20-5.40); RED CELL DISTRIBUTION WIDTH 11.9 % (11.6-14.8); WHITE BLOOD COUNT 8.5 K/UL (4.8-10.8)
[2017-11-26 06:42] LABS: ALANINE AMINOTRANSFERASE 20 U/L (12-78); ALBUMIN 3.5 G/DL (3.4-5.0); ALBUMIN/GLOBULIN RATIO 1.2 (1.0-2.7); ALKALINE PHOSPHATASE 41 U/L (46-116); ANION GAP 4 mmol/L (5-15); ASPARTATE AMINO TRANSFERASE 12 U/L (15-37); BILIRUBIN,TOTAL 0.9 MG/DL (0.2-1.0); BLOOD UREA NITROGEN 3 mg/dL (7-18); CALCIUM 9.1 MG/DL (8.5-10.1); CARBON DIOXIDE 28 MMOL/L (21-32); CHLORIDE 106 MMOL/L (98-107); CREATININE 0.9 MG/DL (0.55-1.30); POTASSIUM 4.3 MMOL/L (3.5-5.1); SODIUM 138 MMOL/L (136-145)
[2017-11-26 08:00] VITALS: BP 112/61
[2017-11-26] MEDS: Pantoprazole Inj IV SCH (09:01)
[2017-11-26] MEDS: Heparin 5000 units/ml inj SUBQ SCH ×2 (09:10→22:04)
[2017-11-26] MEDS: Nitroglycerin Subl 0.4mg tab SL PRN ×2 (09:44→10:27)
--- NOTE | 2017-11-26 10:14 | GI Progress Note ---
Assessment/Plan Problems: (1) Nausea, vomiting, and diarrhea ICD Codes: R11.2 - Nausea with vomiting, unspecified; R19.7 - Diarrhea, unspecified SNOMED: 4508610 (2) Persistent vomiting ICD Codes: R11.10 - Vomiting, unspecified SNOMED: 682665223 (3) Cyclic vomiting syndrome ICD Codes: G43.A0 - Cyclical vomiting, not intractable SNOMED: 64662272 Status: not improved, unchanged Status Narrative Discussed with Dr. Negro. Assessment/Plan abdominal US reviewed >> unremarkable Utox >> positive for MJ and barbiturates UCx negative symptomatic treatment zofran prn, reglan ATC for persistent vomiting >> increased reglan dose today still on FLD electrolyte replacement MJ cessation education given ppi daily dc morphine fu labs Subjective Subjective had another episode of emesis this morning no emesis during night Objective Last 24 Hour Vital Signs Date Time Temp Pulse Resp B/P (MAP) Pulse Ox O2 Delivery O2 Flow Rate FiO2 11/26/17 09:44 141/88 11/26/17 08:00 97.0 68 18 112/61 96 97.0 11/26/17 04:00 97.9 75 18 118/59 100 Room Air 97.9 11/25/17 20:00 98.2 91 19 118/80 97 Room Air 98.2 11/25/17 18:08 98.0 11/25/17 17:09 98.0 11/25/17 16:00 98.0 69 17 114/71 96 98.0 11/25/17 12:00 98.0 66 17 139/89 99 98.0 11/25/17 10:52 98.2 Intake and Output 11/25/17 11/26/17 19:00 07:00 Intake Total 400 ml 240 ml Balance 400 ml 240 ml Intake Oral 400 ml 240 ml # Voids 3 2 # Bowel Movements 1 Laboratory Tests Test 11/26/17 05:30 White Blood Count 8.5 K/UL (4.8-10.8) Red Blood Count 4.13 M/UL (4.20-5.40) L Hemoglobin 12.7 G/DL (12.0-16.0) Hematocrit 37.0 % (37.0-47.0) Mean Corpuscular Volume 89 FL (80-99) Mean Corpuscular Hemoglobin 30.8 PG (27.0-31.0) Mean Corpuscular Hemoglobin Concent 34.4 G/DL (32.0-36.0) Red Cell Distribution Width 11.9 % (11.6-14.8) Platelet Count 349 K/UL (150-450) Mean Platelet Volume 5.8 FL (6.5-10.1) L Neutrophils (%) (Auto) 42.7 % (45.0-75.0) L Lymphocytes (%) (Auto) 43.9 % (20.0-45.0) Monocytes (%) (Auto) 8.3 % (1.0-10.0) Eosinophils (%) (Auto) 3.9 % (0.0-3.0) H Basophils (%) (Auto) 1.2 % (0.0-2.0) Sodium Level 138 MMOL/L (136-145) Potassium Level 4.3 MMOL/L (3.5-5.1) Chloride Level 106 MMOL/L (98-107) Carbon Dioxide Level 28 MMOL/L (21-32) Anion Gap 4 mmol/L (5-15) L Blood Urea Nitrogen 3 mg/dL (7-18) L Creatinine 0.9 MG/DL (0.55-1.30) Estimat Glomerular Filtration Rate > 60 mL/min (>60) Glucose Level 95 MG/DL (74-106) Calcium Level 9.1 MG/DL (8.5-10.1) Phosphorus Level 5.0 MG/DL (2.5-4.9) H Magnesium Level 2.1 MG/DL (1.8-2.4) Total Bilirubin 0.9 MG/DL (0.2-1.0) Aspartate Amino Transf (AST/SGOT) 12 U/L (15-37) L Alanine Aminotransferase (ALT/SGPT) 20 U/L (12-78) Alkaline Phosphatase 41 U/L (46-116) L Total Protein 6.5 G/DL (6.4-8.2) Albumin 3.5 G/DL (3.4-5.0) Globulin 3.0 g/dL Albumin/Globulin Ratio 1.2 (1.0-2.7) Height (Feet): 5 Height (Inches): 3.00 Weight (Pounds): 107 General Appearance: WD/WN, no apparent distress, alert Cardiovascular: normal rate Respiratory/Chest: normal breath sounds, no respiratory distress Abdominal Exam: normal bowel sounds, non tender, soft Extremities: normal range of motion, non-tender Sherine Tabor N.P. Nov 26, 2017 10:14
[2017-11-26] MEDS ORDERED: NS 500ML ONE (10:15)
[2017-11-26] MEDS ORDERED: D5 1/2NS 1000ml IV ONE (10:15)
[2017-11-26] MEDS: LORazepam Inj 2mg/ml 1ml IV PRN (10:54)
[2017-11-26 12:00] VITALS: BP 133/84
--- NOTE | 2017-11-26 13:46 | Pulmonology Progress Note ---
Assessment/Plan Problems: (1) Persistent vomiting (2) Cyclic vomiting syndrome Assessment/Plan still nauseous still can't eat iv fluids symptomatic treatment Subjective ROS Limited/Unobtainable: No Constitutional: Reports: no symptoms HEENT: Repors: no symptoms Allergies: Coded Allergies: AMOXICILLIN (Verified Allergy, Unknown, 11/22/17) PENICILLINS (Verified Allergy, Unknown, 11/22/17) Objective Last 24 Hour Vital Signs Date Time Temp Pulse Resp B/P (MAP) Pulse Ox O2 Delivery O2 Flow Rate FiO2 11/26/17 12:00 98.0 69 17 133/84 98 98.0 11/26/17 10:27 140/88 11/26/17 09:44 141/88 11/26/17 08:00 97.0 68 18 112/61 96 97.0 11/26/17 04:00 97.9 75 18 118/59 100 Room Air 97.9 11/25/17 20:00 98.2 91 19 118/80 97 Room Air 98.2 11/25/17 18:08 98.0 11/25/17 17:09 98.0 11/25/17 16:00 98.0 69 17 114/71 96 98.0 Intake and Output 11/25/17 11/26/17 19:00 07:00 Intake Total 400 ml 240 ml Balance 400 ml 240 ml Intake Oral 400 ml 240 ml # Voids 3 2 # Bowel Movements 1 General Appearance: WD/WN HEENT: normocephalic, atraumatic Respiratory/Chest: chest wall non-tender, lungs clear Cardiovascular: normal rate Genitourinary: normal external genitalia Extremities: no clubbing Skin: no rash Laboratory Tests 11/26/17 05:30: White Blood Count 8.5, Red Blood Count 4.13L, Hemoglobin 12.7, Hematocrit 37.0, Mean Corpuscular Volume 89, Mean Corpuscular Hemoglobin 30.8, Mean Corpuscular Hemoglobin Concent 34.4, Red Cell Distribution Width 11.9, Platelet Count 349, Mean Platelet Volume 5.8L, Neutrophils (%) (Auto) 42.7L, Lymphocytes (%) (Auto) 43.9, Monocytes (%) (Auto) 8.3, Eosinophils (%) (Auto) 3.9H, Basophils (%) (Auto ) 1.2, Sodium Level 138, Potassium Level 4.3, Chloride Level 106, Carbon Dioxide Level 28, Anion Gap 4L, Blood Urea Nitrogen 3L, Creatinine 0.9, Estimat Glomerular Filtration Rate > 60, Glucose Level 95, Calcium Level 9.1, Phosphorus Level 5.0H, Magnesium Level 2.1, Total Bilirubin 0.9, Aspartate Amino Transf (AST/SGOT) 12L, Alanine Aminotransferase (ALT/SGPT) 20, Alkaline Phosphatase 41L, Total Protein 6.5, Albumin 3.5, Globulin 3.0, Albumin/Globulin Ratio 1.2 Current Medications Medications (Trade) Dose Ordered Sig/Gracie Route PRN Reason Start Time Stop Time Status Last Admin Dose Admin Acetaminophen (Tylenol) 650 mg Q4H PRN ORAL fever 11/22/17 21:00 12/22/17 20:59 Acetaminophen/ Hydrocodone Bitart ([place] 5/325) 1 tab EVERY 6 HOURS PRN ORAL Moderate Pain (Pain Scale 4-6) 11/26/17 00:15 12/02/17 10:14 11/26/17 09:01 Al Hydroxide/Mg Hydroxide (Mylanta II) 30 ml Q6H PRN ORAL dyspepsia 11/22/17 21:00 12/22/17 20:59 Dextrose (Dextrose 50%) 25 ml STAT PRN IV BS 60-69mg/dl 11/23/17 16:00 12/23/17 15:59 Dextrose (Dextrose 50%) 50 ml STAT PRN IV BS less than 60mg/dl 11/22/17 21:00 12/22/17 20:59 Dextrose/Sodium Chloride 1,000 ml @ 75 mls/hr [id number] IV 11/22/17 20:53 12/22/17 20:52 11/26/17 04:53 Diphenhydramine HCl (Benadryl) 25 mg Q6H PRN ORAL Itching/Pruritis 11/22/17 21:00 12/22/17 20:59 Heparin Sodium (Porcine) (Heparin 5000 units/ml) 5,000 units EVERY 12 HOURS SUBQ 11/22/17 21:00 12/22/17 20:59 11/26/17 09:10 Lorazepam (Ativan 2mg/ml 1ml) 1 mg EVERY 4 HOURS PRN IV agitation 11/22/17 21:00 11/29/17 20:59 11/26/17 10:54 Metoclopramide HCl (Reglan) 10 mg EVERY 6 HOURS PRN IVP servere nauasea 11/22/17 21:00 12/22/17 20:59 Metoclopramide HCl (Reglan) 10 mg QID ORAL 11/26/17 13:00 12/24/17 12:59 11/26/17 13:37 Nitroglycerin (Ntg) 0.4 mg Q5M X 3 DOSES PRN SL Prn Chest Pain 11/22/17 21:00 12/22/17 20:59 11/26/17 10:27 Ondansetron HCl (Zofran) 4 mg Q6H PRN IVP Nausea & Vomiting 11/22/17 21:00 12/22/17 20:59 11/26/17 09:01 Pantoprazole (Protonix) 40 mg DAILY IV 11/23/17 09:00 12/23/17 08:59 11/26/17 09:01 Polyethylene Glycol (Miralax) 17 gm HSPRN PRN ORAL Constipation 11/22/17 21:00 12/22/17 20:59 Temazepam (Restoril) 15 mg HSPRN PRN ORAL Insomnia 11/22/17 21:00 11/29/17 20:59 11/23/17 22:04 Lexx Melissa MD Nov 26, 2017 13:46
[2017-11-26 16:00] VITALS: BP 133/84
[2017-11-26 20:00] VITALS: BP 116/93
[2017-11-27] VITALS: BP 112/67
[2017-11-27 04:00] VITALS: BP 110/71
[2017-11-27 08:00] VITALS: BP 101/63
[2017-11-27 08:24] LABS: BASOPHILS % (AUTO) 0.9 % (0.0-2.0); EOSINOPHILS % (AUTO) 2.2 % (0.0-3.0); HEMOGLOBIN 12.7 G/DL (12.0-16.0); MEAN CORPUSCULAR VOLUME 89 FL (80-99); MONOCYTES % (AUTO) 8.7 % (1.0-10.0); NEUTROPHILS % (AUTO) 48.2 % (45.0-75.0); PLATELET COUNT 330 K/UL (150-450); RED BLOOD COUNT 4.05 M/UL (4.20-5.40)
[2017-11-27 09:00] LABS: ANION GAP 11 mmol/L (5-15); BLOOD UREA NITROGEN 5 mg/dL (7-18); CALCIUM 8.5 MG/DL (8.5-10.1); CARBON DIOXIDE 25 MMOL/L (21-32); CHLORIDE 104 MMOL/L (98-107); CREATININE 0.7 MG/DL (0.55-1.30); POTASSIUM 3.3 MMOL/L (3.5-5.1); SODIUM 140 MMOL/L (136-145)
[2017-11-27] MEDS: D5 1/2NS 1,000 ML IV SCH (09:04)
[2017-11-27] MEDS: Heparin 5000 units/ml inj SUBQ SCH (09:06)
--- NOTE | 2017-11-27 09:24 | Pulmonology Progress Note ---
Assessment/Plan Problems: (1) Persistent vomiting (2) Cyclic vomiting syndrome Assessment/Plan still nauseous in the morning ate last night and didn't vomit symptomatic treatment dc home with antiemetics Subjective ROS Limited/Unobtainable: No Constitutional: Reports: no symptoms HEENT: Repors: no symptoms Allergies: Coded Allergies: AMOXICILLIN (Verified Allergy, Unknown, 11/22/17) PENICILLINS (Verified Allergy, Unknown, 11/22/17) Objective Last 24 Hour Vital Signs Date Time Temp Pulse Resp B/P (MAP) Pulse Ox O2 Delivery O2 Flow Rate FiO2 11/27/17 04:00 97.7 82 17 110/71 98 97.7 11/27/17 00:00 98.6 82 17 112/67 98 98.6 11/26/17 20:00 98.8 84 18 116/93 98 98.8 11/26/17 16:00 98.0 69 17 133/84 98 98.0 11/26/17 12:00 98.0 69 17 133/84 98 98.0 11/26/17 10:27 140/88 11/26/17 09:44 141/88 Intake and Output 11/26/17 11/27/17 19:00 07:00 Intake Total 1025 ml 825 ml Balance 1025 ml 825 ml Intake Oral 200 ml IV Total 825 ml 825 ml # Voids 2 2 Objective General Appearance: WD/WN HEENT: normocephalic, atraumatic Respiratory/Chest: chest wall non-tender, lungs clear Cardiovascular: normal rate Genitourinary: normal external genitalia Extremities: no clubbing Skin: no rash Laboratory Tests 11/27/17 07:55: Sodium Level 140, Potassium Level 3.3L, Chloride Level 104, Carbon Dioxide Level 25, Anion Gap 11, Blood Urea Nitrogen 5L, Creatinine 0.7, Estimat Glomerular Filtration Rate > 60, Glucose Level 97, Calcium Level 8.5 Current Medications Medications (Trade) Dose Ordered Sig/Gracie Route PRN Reason Start Time Stop Time Status Last Admin Dose Admin Acetaminophen (Tylenol) 650 mg Q4H PRN ORAL fever 11/22/17 21:00 12/22/17 20:59 Acetaminophen/ Hydrocodone Bitart ([place] 5/325) 1 tab EVERY 6 HOURS PRN ORAL Moderate Pain (Pain Scale 4-6) 11/26/17 00:15 12/02/17 10:14 11/26/17 09:01 Al Hydroxide/Mg Hydroxide (Mylanta II) 30 ml Q6H PRN ORAL dyspepsia 11/22/17 21:00 12/22/17 20:59 Dextrose (Dextrose 50%) 25 ml STAT PRN IV BS 60-69mg/dl 11/23/17 16:00 12/23/17 15:59 Dextrose (Dextrose 50%) 50 ml STAT PRN IV BS less than 60mg/dl 11/22/17 21:00 12/22/17 20:59 Dextrose/Sodium Chloride 1,000 ml @ 75 mls/hr [id number] IV 11/22/17 20:53 12/22/17 20:52 11/27/17 09:04 Diphenhydramine HCl (Benadryl) 25 mg Q6H PRN ORAL Itching/Pruritis 11/22/17 21:00 12/22/17 20:59 Heparin Sodium (Porcine) (Heparin 5000 units/ml) 5,000 units EVERY 12 HOURS SUBQ 11/22/17 21:00 12/22/17 20:59 11/27/17 09:06 Lorazepam (Ativan 2mg/ml 1ml) 1 mg EVERY 4 HOURS PRN IV agitation 11/22/17 21:00 11/29/17 20:59 11/26/17 10:54 Metoclopramide HCl (Reglan) 10 mg EVERY 6 HOURS PRN IVP servere nauasea 11/22/17 21:00 12/22/17 20:59 Metoclopramide HCl (Reglan) 10 mg QID ORAL 11/26/17 13:00 12/24/17 12:59 11/27/17 09:04 Nitroglycerin (Ntg) 0.4 mg Q5M X 3 DOSES PRN SL Prn Chest Pain 11/22/17 21:00 12/22/17 20:59 11/26/17 10:27 Ondansetron HCl (Zofran) 4 mg Q6H PRN IVP Nausea & Vomiting 11/22/17 21:00 12/22/17 20:59 11/26/17 09:01 Pantoprazole (Protonix) 40 mg DAILY ORAL 11/27/17 09:00 12/27/17 08:59 11/27/17 09:07 Polyethylene Glycol (Miralax) 17 gm HSPRN PRN ORAL Constipation 11/22/17 21:00 12/22/17 20:59 Temazepam (Restoril) 15 mg HSPRN PRN ORAL Insomnia 11/22/17 21:00 11/29/17 20:59 11/27/17 01:36 Lexx Melissa MD Nov 27, 2017 09:24
[2017-11-27] MEDS ORDERED: REGLAN10 MG ORAL (09:32)
--- NOTE | 2017-11-30 16:01 | Discharge Summary ---
Discharge Summary Discharge Summary Discharge Summary DATE OF ADMISSION: 11/22/2017 DATE OF DISCHARGE: 11/27/2017 CONSULTANTS: Dr. Antonio Negro [facility] COURSE: Patient is a 32-year-old female with medical history of cyclic vomiting syndrome , presented to ED with complaints of nausea and vomiting after she smoked marijuana. She smoked more done usual and had episodes of multiple vomiting and diarrhea. She reported being seen at several different emergency rooms and is not feeling well. She denied chest pain, denied shortness of breath, denied back or flank pains. On evaluation at ED she was given IV hydration. Urine toxicology was positive for marijuana and barbiturates. Urinalysis with 5-10 WBC, 2-4 RBC, 1+ leukocyte esterase. She was admitted for intractable nausea and vomiting and not able to eat. She was placed on nothing by mouth and was given IV hydration. She was seen by GI. Abdominal ultrasound was done and was unremarkable. Urine culture was negative. Diet was advanced, however, taking it with episodes of vomiting. Diet was slowly advanced. She was advised cessation from marijuana. She was placed on proton pump inhibitors. She was given antiemetics. Morphine was discontinued. She was given potassium replacements. She was eventually discharged home. FINAL DIAGNOSES: Cyclic vomiting syndrome Persistent vomiting DISPOSITION: Patient was discharged home DISCHARGE MEDICATIONS: Refer to Discharge Medication List. DISCHARGE INSTRUCTIONS: Follow up with PCP in a week. Counselled on marijuana cessation. I have been assigned to dictate discharge summary on this account, and I was not involved in the patient's management. Ann Mayorga NP Nov 30, 2017 16:01
== END 2017-11-27 11:15 | disposition home or self-care (01) | DRG 54 ==
LOC: EDBD 13:16 → EMR 17:55 → 3E 20:20 → EDBEDREQ 20:43
DX: G43.A0 Cyclical vomiting, in migraine, not intractable (principal); F12.90 Cannabis use, unspecified, uncomplicated; R19.7 Diarrhea, unspecified; Z88.1 Allergy status to other antibiotic agents; Z88.0 Allergy status to penicillin
CPT/HCPCS: 36415; 76700; 80048; 80053; 80307; 81003; 81025; 82150; 83690; 83735; 84100; 85025; 85730; 87081; 87086; 93005; 99285; J2405; J2765; J8499

== ENCOUNTER 2017-12-06 05:55 | Inpatient (IN) | payer MEDICAID ==
[2017-12-06] VITALS (7 sets, daily range): BP systolic 103–138; BP diastolic 68–89
[~2017-12-06] VITALS: Ht 160 cm; Wt 44.9 kg
[~2017-12-06 05:55] MED LIST: REGLAN10 MG ORAL; ZOFRAN ODT4 MG ORAL
[2017-12-06] MEDS ORDERED: Promethazine HCl 25 MG in NS 55 ML IVPB ONE (06:00)
[2017-12-06] MEDS ORDERED: Haloperidol Lactate 5 MG in D5W 55 ML IVPB ONE (06:00)
--- NOTE | 2017-12-06 06:06 | Emergency Room Report ---
History of Present Illness General Chief Complaint: Vomiting Source: Patient, Medical Record, EMS Present Illness HPI This a 32-year-old female with a history of cyclic vomiting syndrome. Supposedly it all started about a month ago. She's been to numerous hospitals including this one. She was just discharged from here last week after several days admission. Since then she's been to several hospitals also. She said she unable to keep anything down. Vomiting is nonbloody nonbilious. Gilbert nauseous all the time. Abdominal cramps. No diarrhea. History of marijuana abuse but no longer using. She is currently staying in a [facility] for substance abuse. She claimed that this is from marijuana. Denies any other drug use. Allergies: Coded Allergies: AMOXICILLIN (Verified Allergy, Unknown, 11/22/17) PENICILLINS (Verified Allergy, Unknown, 11/22/17) Patient History Past Medical History: see triage record, old chart reviewed Past Surgical History: other Pertinent Family History: none Social History: Denies: smoking Last Menstrual Period: 2 weeks ago Now: No Immunizations: other Reviewed Nursing Documentation: PMH: Agreed; PSxH: Agreed Nursing Documentation-PMH Past Medical History: No Stated History Review of Systems Eye: Denies: eye pain, blurred vision ENT: Denies: ear pain, nose congestion, throat swelling Respiratory: Denies: cough, shortness of breath Cardiovascular: Denies: chest pain, palpitations Gastrointestinal: Reports: abdominal pain, nausea, vomiting; Denies: diarrhea Musculoskeletal: Denies: back pain, joint pain Skin: Denies: rash Neurological: Denies: headache, numbness Endocrine: Denies: increased thirst, increased urine Hematologic/Lymphatic: Denies: easy bruising All Other Systems: negative except mentioned in HPI Physical Exam Vital Signs Date Time Temp Pulse Resp B/P (MAP) Pulse Ox O2 Delivery O2 Flow Rate FiO2 12/06/17 05:50 97.5 80 18 131/88 97 Room Air 97.5 vitals normal Sp02 EP Interpretation: reviewed, normal General Appearance: no apparent distress, alert, thin Head: normocephalic, atraumatic Eyes: bilateral eye PERRL, bilateral eye EOMI ENT: hearing grossly normal, normal pharynx Neck: full range of motion, supple, no meningismus Respiratory: chest non-tender, lungs clear, normal breath sounds Cardiovascular #1: regular rate, rhythm, no murmur Gastrointestinal: normal bowel sounds, non tender, no mass, no organomegaly, no bruit, non-distended Musculoskeletal: back normal, gait/station normal, normal range of motion Psychiatric: mood/affect normal Skin: warm/dry Medical Decision Making Diagnostic Impression: Primary Impression: Cyclic vomiting syndrome Qualified Codes: G43.A1 - Cyclical vomiting, intractable ER Course pt with cyclic vomiting syndrome. Labs pending. Pt received IVF with phenergan and Haldol with improvement. no prolonged QT on the monitor. I will s/o pt to Dr. Stahl for final disposition. Last Vital Signs Date Time Temp Pulse Resp B/P (MAP) Pulse Ox O2 Delivery O2 Flow Rate FiO2 12/06/17 05:50 97.5 80 18 131/88 97 Room Air 97.5 Status: improved Disposition: HOME, SELF-CARE Condition: Stable CHIDI SZYMANSKI M.D. Dec 06, 2017 06:06
[2017-12-06] MEDS ORDERED: PROCHLORPERAZINE5 MG ORAL (06:07)
[2017-12-06] MEDS ORDERED: VISTARIL50 MG ORAL (06:07)
[2017-12-06] MEDS ORDERED: PANTOPRAZOLE SO40 MG ORAL (06:07)
[2017-12-06] MEDS ORDERED: METOCLOPRAMIDE H5 M1 ORAL (06:07)
[2017-12-06] MEDS ORDERED: DICYCLOMINE HCL10 MG PO (06:07)
[2017-12-06] MEDS ORDERED: ZOFRAN ODT4 MG ORAL (06:07)
[2017-12-06 06:41] LABS: BASOPHILS % (AUTO) 0.8 % (0.0-2.0); EOSINOPHILS % (AUTO) 0.2 % (0.0-3.0); HEMATOCRIT 38.7 % (37.0-47.0); HEMOGLOBIN 14.1 G/DL (12.0-16.0); LYMPHOCYTES % (AUTO) 20.7 % (20.0-45.0); MEAN CORPUSCULAR VOLUME 89 FL (80-99); MONOCYTES % (AUTO) 6.9 % (1.0-10.0); NEUTROPHILS % (AUTO) 71.4 % (45.0-75.0); PLATELET COUNT 438 K/UL (150-450); RED BLOOD COUNT 4.34 M/UL (4.20-5.40); RED CELL DISTRIBUTION WIDTH 11.6 % (11.6-14.8); WHITE BLOOD COUNT 7.7 K/UL (4.8-10.8)
[2017-12-06 06:46] LABS: ANION GAP 14 mmol/L (5-15); BLOOD UREA NITROGEN 17 mg/dL (7-18); CALCIUM 9.6 MG/DL (8.5-10.1); CARBON DIOXIDE 22 MMOL/L (21-32); CHLORIDE 103 MMOL/L (98-107); CREATININE 0.9 MG/DL (0.55-1.30); POTASSIUM 3.7 MMOL/L (3.5-5.1); SODIUM 139 MMOL/L (136-145)
[2017-12-06 06:47] LABS: APPEARANCE,URINE SLIGHTLY CLOUDY; BILIRUBIN, URINE NEGATIVE (NEGATIVE); GLUCOSE, URINE (UA) NEGATIVE (NEGATIVE); KETONES,URINE 3+ (NEGATIVE); LEUKOCYTE ESTERASE ,URINE 1+ (NEGATIVE); NITRITE,URINE NEGATIVE (NEGATIVE); PH,URINE 7 (4.5-8.0); PROTEIN,URINE 2+ (NEGATIVE); UROBILINOGEN,URINE 1 MG/DL (0.0-1.0)
[2017-12-06 06:54] LABS: COLOR,URINE YELLOW
[2017-12-06] MEDS ORDERED: DiphenhydrAMINE 50mg/ml Inj IVP ONE (08:15)
[2017-12-06] MEDS ORDERED: LORazepam Inj 2mg/ml 1ml IV ONE (08:15)
[2017-12-06] MEDS ORDERED: Metoclopramide 10mg/2ml Inj IVP ONE (08:15)
[2017-12-06] MEDS ORDERED: Dicyclomine HCl 10mg/5ml oral soln ORAL ONE (09:45)
[2017-12-06] MEDS ORDERED: Mylanta II UD 30ml ORAL ONE (09:45)
--- NOTE | 2017-12-06 12:10 | Emergency Room Report ---
History of Present Illness General Chief Complaint: Vomiting Source: Patient, Medical Record, EMS Present Illness Allergies: Coded Allergies: AMOXICILLIN (Verified Allergy, Unknown, 11/22/17) PENICILLINS (Verified Allergy, Unknown, 11/22/17) Patient History Last Menstrual Period: 2 weeks ago Now: No Nursing Documentation-[facility] Past Medical History: No Stated History Physical Exam Vital Signs Date Time Temp Pulse Resp B/P (MAP) Pulse Ox O2 Delivery O2 Flow Rate FiO2 12/06/17 05:50 97.5 80 18 131/88 97 Room Air 97.5 Medical Decision Making Diagnostic Impression: Primary Impression: Cyclic vomiting syndrome Qualified Codes: G43.A1 - Cyclical vomiting, intractable ER Course Please refer to the initial note for the history and presentation Patient here continued to feel uncomfortable had further intervention performed in the ER After multiple re-evaluations and attempt of improvement in the ER Patient reports continued discomfort Patient had recent hospitalization however at this time requesting further inpatient care again and was placed into admission for further care Labs Test 12/06/17 06:00 White Blood Count 7.7 K/UL (4.8-10.8) Red Blood Count 4.34 M/UL (4.20-5.40) Hemoglobin 14.1 G/DL (12.0-16.0) Hematocrit 38.7 % (37.0-47.0) Mean Corpuscular Volume 89 FL (80-99) Mean Corpuscular Hemoglobin 32.6 PG (27.0-31.0) Mean Corpuscular Hemoglobin Concent 36.5 G/DL (32.0-36.0) Red Cell Distribution Width 11.6 % (11.6-14.8) Platelet Count 438 K/UL (150-450) Mean Platelet Volume 5.4 FL (6.5-10.1) Neutrophils (%) (Auto) 71.4 % (45.0-75.0) Lymphocytes (%) (Auto) 20.7 % (20.0-45.0) Monocytes (%) (Auto) 6.9 % (1.0-10.0) Eosinophils (%) (Auto) 0.2 % (0.0-3.0) Basophils (%) (Auto) 0.8 % (0.0-2.0) Urine Color Yellow Urine Appearance Slightly cloudy Urine pH 7 (4.5-8.0) Urine Specific [place] 1.015 (1.005-1.035) Urine Protein 2+ (NEGATIVE) Urine Glucose (UA) Negative (NEGATIVE) Urine Ketones 3+ (NEGATIVE) Urine Occult Blood Negative (NEGATIVE) Urine Nitrite Negative (NEGATIVE) Urine Bilirubin Negative (NEGATIVE) Urine Urobilinogen 1 MG/DL (0.0-1.0) Urine Leukocyte Esterase 1+ (NEGATIVE) Urine RBC 0-2 /HPF (0 - 2) Urine WBC 0-2 /HPF (0 - 2) Urine Squamous Epithelial Cells Few /LPF (NONE/OCC) Urine Amorphous Sediment Many /LPF (NONE) Urine Bacteria Occasional /HPF (NONE) Urine HCG, Qualitative Negative (NEGATIVE) Sodium Level 139 MMOL/L (136-145) Potassium Level 3.7 MMOL/L (3.5-5.1) Chloride Level 103 MMOL/L (98-107) Carbon Dioxide Level 22 MMOL/L (21-32) Anion Gap 14 mmol/L (5-15) Blood Urea Nitrogen 17 mg/dL (7-18) Creatinine 0.9 MG/DL (0.55-1.30) Estimat Glomerular Filtration Rate > 60 mL/min (>60) Glucose Level 144 MG/DL (74-106) Calcium Level 9.6 MG/DL (8.5-10.1) Last Vital Signs Date Time Temp Pulse Resp B/P (MAP) Pulse Ox O2 Delivery O2 Flow Rate FiO2 12/06/17 07:21 90 16 122/76 100 Room Air 12/06/17 06:15 97.5 97.5 Status: unchanged Disposition: PLACE IN OBSERVATION Condition: Serious Referrals: [facility],REFERRING (PCP) Tor Stahl DO Dec 06, 2017 12:09
[2017-12-06] MEDS ORDERED: Mylanta II UD 30ml ORAL PRN (14:30)
[2017-12-06] MEDS ORDERED: Promethazine HCl 12.5 MG in NS 55 ML IV PRN (14:30)
[2017-12-06] MEDS ORDERED: Morphine Sulfate 4mg/ml Inj IVP PRN (14:30)
[2017-12-06] MEDS ORDERED: LORazepam Inj 2mg/ml 1ml IV PRN (14:30)
[2017-12-06] MEDS ORDERED: Nitroglycerin Subl 0.4mg tab SL PRN (14:30)
[2017-12-06] MEDS ORDERED: Miralax 17gm pkt ORAL PRN (14:30)
[2017-12-06] MEDS ORDERED: Promethazine HCl 25 MG in D5W 55 ML IV PRN (14:30)
[2017-12-06] MEDS ORDERED: Metoclopramide 10mg/2ml Inj IVP PRN (14:30)
--- NOTE | 2017-12-06 15:17 | Consultation ---
History of Present Illness General Chief Complaint: Vomiting Present Illness Allergies: Coded Allergies: AMOXICILLIN (Verified Allergy, Unknown, 11/22/17) PENICILLINS (Verified Allergy, Unknown, 11/22/17) Medication History Scheduled Dicyclomine Hcl* (Dicyclomine Hcl*), 10 MG PO QID, (Reported) Hydroxyzine Pamoate* (Vistaril*), 50 MG ORAL EVERY 6 HOURS, (Reported) Metoclopramide Hcl* (Reglan*), 10 MG ORAL QID Metoclopramide Hcl* (Metoclopramide Hcl*), 10 MG ORAL EVERY 8 HOURS, (Reported) Pantoprazole* (Pantoprazole*), 40 MG ORAL DAILY, (Reported) Prochlorperazine Maleate* (Compazine*), 10 MG ORAL Q6H, (Reported) Scheduled PRN Ondansetron Odt* (Zofran Odt*), 4 MG ORAL Q6H PRN for Nausea & Vomiting Discontinued Medications Ondansetron Odt* (Zofran Odt*), 4 MG ORAL Q6H PRN for Nausea & Vomiting, ( Reported) Discontinued Reason: Therapy completed Patient History Healthcare decision maker Resuscitation status Advanced Directive on File Physical Exam Last 24 Hour Vital Signs Date Time Temp Pulse Resp B/P (MAP) Pulse Ox O2 Delivery O2 Flow Rate FiO2 12/06/17 13:00 93 11 130/89 98 Room Air 12/06/17 11:00 90 20 115/79 99 Room Air 12/06/17 09:00 94 21 138/87 100 Room Air 12/06/17 07:21 90 16 122/76 100 Room Air 12/06/17 06:15 97.5 80 18 131/88 97 Room Air 97.5 12/06/17 05:50 97.5 80 18 131/88 97 Room Air 97.5 Intake and Output 12/05/17 12/06/17 19:00 07:00 # Voids 1 Laboratory Tests Test 12/06/17 06:00 White Blood Count 7.7 K/UL (4.8-10.8) Red Blood Count 4.34 M/UL (4.20-5.40) Hemoglobin 14.1 G/DL (12.0-16.0) Hematocrit 38.7 % (37.0-47.0) Mean Corpuscular Volume 89 FL (80-99) Mean Corpuscular Hemoglobin 32.6 PG (27.0-31.0) H Mean Corpuscular Hemoglobin Concent 36.5 G/DL (32.0-36.0) H Red Cell Distribution Width 11.6 % (11.6-14.8) Platelet Count 438 K/UL (150-450) Mean Platelet Volume 5.4 FL (6.5-10.1) L Neutrophils (%) (Auto) 71.4 % (45.0-75.0) Lymphocytes (%) (Auto) 20.7 % (20.0-45.0) Monocytes (%) (Auto) 6.9 % (1.0-10.0) Eosinophils (%) (Auto) 0.2 % (0.0-3.0) Basophils (%) (Auto) 0.8 % (0.0-2.0) Urine Color Yellow Urine Appearance Slightly cloudy Urine pH 7 (4.5-8.0) Urine Specific [place] 1.015 (1.005-1.035) Urine Protein 2+ (NEGATIVE) H Urine Glucose (UA) Negative (NEGATIVE) Urine Ketones 3+ (NEGATIVE) H Urine Occult Blood Negative (NEGATIVE) Urine Nitrite Negative (NEGATIVE) Urine Bilirubin Negative (NEGATIVE) Urine Urobilinogen 1 MG/DL (0.0-1.0) H Urine Leukocyte Esterase 1+ (NEGATIVE) H Urine RBC 0-2 /HPF (0 - 2) Urine WBC 0-2 /HPF (0 - 2) Urine Squamous Epithelial Cells Few /LPF (NONE/OCC) Urine Amorphous Sediment Many /LPF (NONE) H Urine Bacteria Occasional /HPF (NONE) Urine HCG, Qualitative Negative (NEGATIVE) Sodium Level 139 MMOL/L (136-145) Potassium Level 3.7 MMOL/L (3.5-5.1) Chloride Level 103 MMOL/L (98-107) Carbon Dioxide Level 22 MMOL/L (21-32) Anion Gap 14 mmol/L (5-15) Blood Urea Nitrogen 17 mg/dL (7-18) Creatinine 0.9 MG/DL (0.55-1.30) Estimat Glomerular Filtration Rate > 60 mL/min (>60) Glucose Level 144 MG/DL (74-106) H Calcium Level 9.6 MG/DL (8.5-10.1) Height (Feet): 5 Height (Inches): 3.00 Weight (Pounds): 100 Medications Current Medications Medications (Trade) Dose Ordered Sig/Gracie Route PRN Reason Start Time Stop Time Status Last Admin Dose Admin Acetaminophen (Tylenol) 650 mg Q4H PRN ORAL fever (temp>100.5F) 12/06/17 14:30 01/05/18 14:29 Al Hydroxide/Mg Hydroxide (Mylanta II) 30 ml Q6H PRN ORAL dyspepsia 12/06/17 14:30 01/05/18 14:29 Dextrose (Dextrose 50%) 25 ml STAT PRN IV Hypoglycemia 12/06/17 14:30 01/05/18 14:29 Dextrose (Dextrose 50%) 50 ml STAT PRN IV Hypoglycemia 12/06/17 14:45 01/05/18 14:44 Dextrose/Sodium Chloride 1,000 ml @ 75 mls/hr [id number] IV 12/06/17 15:00 01/05/18 14:59 Diphenhydramine HCl (Benadryl) 25 mg Q6H PRN ORAL Itching/Pruritis 12/06/17 14:30 01/05/18 14:29 Heparin Sodium (Porcine) (Heparin 5000 units/ml) 5,000 units EVERY 12 HOURS SUBQ 12/06/17 21:00 01/05/18 20:59 Lorazepam (Ativan 2mg/ml 1ml) 1 mg Q4H PRN IV agitation 12/06/17 14:30 12/13/17 14:29 Metoclopramide HCl (Reglan) 10 mg Q6H PRN IVP severe [place] 12/06/17 14:30 01/05/18 14:29 Morphine Sulfate (Morphine Sulfate) 2 mg Q4H PRN IVP severe Pain (Pain Scale 7-10) 12/06/17 14:30 12/13/17 14:29 Nitroglycerin (Ntg) 0.4 mg Q5M X 3 DOSES PRN SL Prn Chest Pain 12/06/17 14:30 01/05/18 14:29 Ondansetron HCl (Zofran) 4 mg Q6H PRN IVP Nausea & Vomiting 12/06/17 14:30 01/05/18 14:29 Pantoprazole (Protonix) 40 mg DAILY IV 12/07/17 09:00 01/06/18 08:59 Polyethylene Glycol (Miralax) 17 gm HSPRN PRN ORAL Constipation 12/06/17 14:30 01/05/18 14:29 Promethazine HCl 25 mg/Dextrose 56 ml @ 110 mls/hr Q6H PRN IV Refractory N/V 12/06/17 14:30 01/05/18 14:29 Temazepam (Restoril) 15 mg HSPRN PRN ORAL Insomnia 12/06/17 14:30 12/13/17 14:29 Lexx Melissa MD Dec 06, 2017 15:17
[2017-12-06] MEDS: D5 1/2NS 1,000 ML IV SCH (17:29)
[2017-12-06] MEDS: Heparin 5000 units/ml inj SUBQ SCH (20:23)
[2017-12-07] VITALS: BP 123/76
[2017-12-07 04:00] VITALS: BP 94/52
[2017-12-07] MEDS: D5 1/2NS 1,000 ML IV SCH (05:01)
[2017-12-07 08:00] VITALS: BP 118/71
[2017-12-07 08:24] LABS: BASOPHILS % (AUTO) 1.6 % (0.0-2.0); EOSINOPHILS % (AUTO) 1.5 % (0.0-3.0); HEMATOCRIT 36.1 % (37.0-47.0); HEMOGLOBIN 12.3 G/DL (12.0-16.0); LYMPHOCYTES % (AUTO) 48.9 % (20.0-45.0); MEAN CORPUSCULAR VOLUME 90 FL (80-99); MONOCYTES % (AUTO) 9.6 % (1.0-10.0); NEUTROPHILS % (AUTO) 38.4 % (45.0-75.0); PLATELET COUNT 352 K/UL (150-450); RED BLOOD COUNT 4.02 M/UL (4.20-5.40); RED CELL DISTRIBUTION WIDTH 11.6 % (11.6-14.8); WHITE BLOOD COUNT 5.6 K/UL (4.8-10.8)
[2017-12-07 08:53] LABS: ALANINE AMINOTRANSFERASE 26 U/L (12-78); ALBUMIN 3.5 G/DL (3.4-5.0); ALBUMIN/GLOBULIN RATIO 1.2 (1.0-2.7); ALKALINE PHOSPHATASE 37 U/L (46-116); AMYLASE 61 U/L (25-115); ANION GAP 5 mmol/L (5-15); ASPARTATE AMINO TRANSFERASE 11 U/L (15-37); BILIRUBIN,TOTAL 0.8 MG/DL (0.2-1.0); BLOOD UREA NITROGEN 13 mg/dL (7-18); CALCIUM 8.4 MG/DL (8.5-10.1); CARBON DIOXIDE 29 MMOL/L (21-32); CHLORIDE 105 MMOL/L (98-107); CREATININE 0.7 MG/DL (0.55-1.30); POTASSIUM 3.8 MMOL/L (3.5-5.1); SODIUM 139 MMOL/L (136-145)
--- NOTE | 2017-12-07 08:54 | GI Initial Consult Note ---
History of Present Illness General Date patient seen: Dec 06, 2017 Time patient seen: 15:00 Reason for Hospitalization: Vomiting Referring physician: DAYO HEWITT Reason for Consultation: CYCLIC VOMITING SYNDROME Present Illness HPI This a 32-year-old female with a history of cyclic vomiting syndrome. Supposedly it all started about a month ago. She's been to numerous hospitals including this one. She was just discharged from here last week after several days admission. Since then she's been to several hospitals also. She said she unable to keep anything down. Vomiting is nonbloody nonbilious. Marceline nauseous all the time. Abdominal cramps. No diarrhea. History of marijuana abuse but no longer using. She is currently staying in a boarding care for substance abuse. She claimed that this is from marijuana. Denies any other drug use. GI consulted for hyperemesis. Pt seen, awake A&Ox4 NAD with no active s/sx of N/V/D. Emesis has resolved. No reports of diarrhea. Labs reviewed. No anemia or leukocytosis. Patient admits to being a chronic marijuana user. Home Meds Active Scripts Metoclopramide Hcl* (REGLAN*) 10 Mg Tablet, 10 MG ORAL QID for 10 Days, TAB Prov:Dayo Melissa MD 11/27/17 Ondansetron Odt* (ZOFRAN ODT*) 4 Mg Tab.rapdis, 4 MG ORAL Q6H PRN for Nausea & Vomiting, #12 TAB 0 Refills Prov:Tor Stahl DO 11/22/17 Reported Medications Prochlorperazine Maleate* (COMPAZINE*) 5 Mg Tablet, 10 MG ORAL Q6H, TAB 0 Refills 12/06/17 Pantoprazole* (PANTOPRAZOLE*) 40 Mg Tablet.dr, 40 MG ORAL DAILY, TAB 12/06/17 Metoclopramide Hcl* (METOCLOPRAMIDE HCL*) 5 Mg Tablet, 10 MG ORAL EVERY 8 HOURS , TAB 12/06/17 Hydroxyzine Pamoate* (VISTARIL*) 50 Mg Capsule, 50 MG ORAL EVERY 6 HOURS, #20 TAB 0 Refills 12/06/17 Dicyclomine Hcl* (DICYCLOMINE HCL*) 10 Mg Capsule, 10 MG PO QID, CAP 12/06/17 Discontinued Reported Medications Ondansetron Odt* (ZOFRAN ODT*) 4 Mg Tab.rapdis, 4 MG ORAL Q6H PRN for Nausea & Vomiting, #30 TAB 12/06/17 Med list reviewed/reconciled: Yes Allergies: Coded Allergies: AMOXICILLIN (Verified Allergy, Unknown, 11/22/17) PENICILLINS (Verified Allergy, Unknown, 11/22/17) Patient History History Provided By: Patient, Medical Record Family History Narrative Past Medical History: see triage record, old chart reviewed Past Surgical History: other Pertinent Family History: none Social History: Denies: smoking Last Menstrual Period: 2 weeks ago Now: No Immunizations: other Reviewed Nursing Documentation: PMH: Agreed; PSxH: Agreed Nursing Documentation-PMH Past Medical History: No Stated History Social History: Reports: drug use Review of Systems All Other Systems: negative except mentioned in HPI Physical Exam Vital Signs Date Time Temp Pulse Resp B/P (MAP) Pulse Ox O2 Delivery O2 Flow Rate FiO2 12/06/17 05:50 97.5 80 18 131/88 97 Room Air 97.5 Sp02 EP Interpretation: reviewed, normal Labs Laboratory Tests Test 12/07/17 08:10 White Blood Count 5.6 K/UL (4.8-10.8) Red Blood Count 4.02 M/UL (4.20-5.40) L Hemoglobin 12.3 G/DL (12.0-16.0) Hematocrit 36.1 % (37.0-47.0) L Mean Corpuscular Volume 90 FL (80-99) Mean Corpuscular Hemoglobin 30.6 PG (27.0-31.0) Mean Corpuscular Hemoglobin Concent 34.0 G/DL (32.0-36.0) Red Cell Distribution Width 11.6 % (11.6-14.8) Platelet Count 352 K/UL (150-450) Mean Platelet Volume 5.4 FL (6.5-10.1) L Neutrophils (%) (Auto) 38.4 % (45.0-75.0) L Lymphocytes (%) (Auto) 48.9 % (20.0-45.0) H Monocytes (%) (Auto) 9.6 % (1.0-10.0) Eosinophils (%) (Auto) 1.5 % (0.0-3.0) Basophils (%) (Auto) 1.6 % (0.0-2.0) Activated Partial Thromboplast Time 32 SEC (23-33) Sodium Level Pending Potassium Level Pending Chloride Level Pending Carbon Dioxide Level Pending Blood Urea Nitrogen Pending Creatinine Pending Estimat Glomerular Filtration Rate Pending Glucose Level Pending Calcium Level Pending Total Bilirubin Pending Aspartate Amino Transf (AST/SGOT) Pending Alanine Aminotransferase (ALT/SGPT) Pending Alkaline Phosphatase Pending Total Protein Pending Albumin Pending Globulin Pending Amylase Level Pending Lipase Pending General Appearance: well appearing, no apparent distress, alert Head: normocephalic EENT: PERRL/EOMI, normal ENT inspection Neck: supple Respiratory: normal breath sounds, no respiratory distress Cardiovascular: normal rate Gastrointestinal: normal inspection, non tender, soft, normal bowel sounds, non -distended Rectal: deferred Genitourinary: no CVA tenderness Musculoskeletal: normal inspection, back normal Neurologic: normal inspection, alert, oriented x3, responsive Psychiatric: normal inspection, judgement/insight normal, memory normal Skin: normal inspection, normal color, no rash, warm/dry, palpation normal, well hydrated Lymphatic: normal inspection, no adenopathy Current Medications Current Medications Medications (Trade) Dose Ordered Sig/Gracie Route PRN Reason Start Time Stop Time Status Last Admin Dose Admin Acetaminophen (Tylenol) 650 mg Q4H PRN ORAL fever (temp>100.5F) 12/06/17 14:30 01/05/18 14:29 Al Hydroxide/Mg Hydroxide (Mylanta II) 30 ml Q6H PRN ORAL dyspepsia 12/06/17 14:30 01/05/18 14:29 Dextrose (Dextrose 50%) 25 ml STAT PRN IV Hypoglycemia 12/06/17 14:30 01/05/18 14:29 Dextrose (Dextrose 50%) 50 ml STAT PRN IV Hypoglycemia 12/06/17 14:45 01/05/18 14:44 Dextrose/Sodium Chloride 1,000 ml @ 75 mls/hr [id number] IV 12/06/17 15:00 01/05/18 14:59 12/07/17 05:01 Diphenhydramine HCl (Benadryl) 25 mg Q6H PRN ORAL Itching/Pruritis 12/06/17 14:30 01/05/18 14:29 Heparin Sodium (Porcine) (Heparin 5000 units/ml) 5,000 units EVERY 12 HOURS SUBQ 12/06/17 21:00 01/05/18 20:59 12/06/17 20:23 Lorazepam (Ativan 2mg/ml 1ml) 1 mg Q4H PRN IV agitation 12/06/17 14:30 12/13/17 14:29 Metoclopramide HCl (Reglan) 10 mg Q6H PRN IVP severe [place] 12/06/17 14:30 01/05/18 14:29 Morphine Sulfate (Morphine Sulfate) 2 mg Q4H PRN IVP severe Pain (Pain Scale 7-10) 12/06/17 14:30 12/13/17 14:29 Nitroglycerin (Ntg) 0.4 mg Q5M X 3 DOSES PRN SL Prn Chest Pain 12/06/17 14:30 01/05/18 14:29 Ondansetron HCl (Zofran) 4 mg Q6H PRN IVP Nausea & Vomiting 12/06/17 14:30 01/05/18 14:29 Pantoprazole (Protonix) 40 mg DAILY IV 12/07/17 09:00 01/06/18 08:59 Polyethylene Glycol (Miralax) 17 gm HSPRN PRN ORAL Constipation 12/06/17 14:30 01/05/18 14:29 Promethazine HCl 25 mg/Dextrose 56 ml @ 110 mls/hr Q6H PRN IV Refractory N/V 12/06/17 14:30 01/05/18 14:29 Temazepam (Restoril) 15 mg HSPRN PRN ORAL Insomnia 12/06/17 14:30 12/13/17 14:29 GI: Plan Problems: (1) Cyclic vomiting syndrome (2) Nausea, vomiting, and diarrhea Plan abdominal U/S reviewed >> negative symptomatic control fu utox adv to regular diet abdominal U/S, ok to adv to regular diet after if vomiting controlled zofran prn, reglan for persistent vomiting okay for DC per GI standpoint Sherine Tabor N.PCaitlyn December 07, 2017 08:53
[2017-12-07] MEDS ORDERED: Pantoprazole Inj IV SCH (09:00)
[2017-12-07] MEDS: Heparin 5000 units/ml inj SUBQ SCH (09:57)
[2017-12-07 12:00] VITALS: BP 114/67
--- NOTE | 2017-12-07 13:33 | History and Physical ---
History of Present Illness General Date patient seen: Dec 06, 2017 Reason for Hospitalization: Vomiting Present Illness HPI This a 32-year-old female with a history of cyclic vomiting syndrome. Supposedly it all started about a month ago. She's been to numerous hospitals including this one. She was just discharged from here last week after several days admission. Since then she's been to several hospitals also. She said she unable to keep anything down. Vomiting is nonbloody nonbilious. [place] nauseous all the time. Abdominal cramps. No diarrhea. History of marijuana abuse but no longer using. She is currently staying in a [facility] for substance abuse. She claimed that this is from marijuana. Denies any other drug use. Allergies: Coded Allergies: AMOXICILLIN (Verified Allergy, Unknown, 11/22/17) PENICILLINS (Verified Allergy, Unknown, 11/22/17) Medication History Scheduled Dicyclomine Hcl* (Dicyclomine Hcl*), 10 MG PO QID, (Reported) Hydroxyzine Pamoate* (Vistaril*), 50 MG ORAL EVERY 6 HOURS, (Reported) Metoclopramide Hcl* (Reglan*), 10 MG ORAL QID Metoclopramide Hcl* (Metoclopramide Hcl*), 10 MG ORAL EVERY 8 HOURS, (Reported) Pantoprazole* (Pantoprazole*), 40 MG ORAL DAILY, (Reported) Prochlorperazine Maleate* (Compazine*), 10 MG ORAL Q6H, (Reported) Scheduled PRN Ondansetron Odt* (Zofran Odt*), 4 MG ORAL Q6H PRN for Nausea & Vomiting Discontinued Medications Ondansetron Odt* (Zofran Odt*), 4 MG ORAL Q6H PRN for Nausea & Vomiting, ( Reported) Discontinued Reason: Therapy completed Patient History Healthcare decision maker Resuscitation status Full Code Advanced Directive on File No Past Medical/Surgical History Past Medical/Surgical History: (1) Cyclic vomiting syndrome Review of Systems All Other Systems: negative except mentioned in HPI Physical Exam General Appearance: WD/WN, no apparent distress Lines, tubes and drains: peripheral HEENT: atraumatic, anicteric Neck: normal alignment, supple Respiratory/Chest: chest wall non-tender, normal breath sounds Breasts: no masses Cardiovascular/Chest: normal peripheral pulses, regular rhythm Abdomen: non tender Genitourinary/Rectal: normal genital exam Last 24 Hour Vital Signs Date Time Temp Pulse Resp B/P (MAP) Pulse Ox O2 Delivery O2 Flow Rate FiO2 12/07/17 08:00 97.7 70 20 118/71 99 Room Air 97.7 12/07/17 04:00 97.5 68 19 94/52 98 97.5 12/07/17 00:00 97.9 62 19 123/76 100 97.9 12/06/17 21:00 98.2 82 20 105/68 98 98.2 12/06/17 17:00 97.5 97 20 103/68 98 Room Air 97.5 12/06/17 15:00 97 20 103/68 98 Room Air Intake and Output 12/06/17 12/07/17 19:00 07:00 Intake Total 1112 ml Balance 1112 ml Intake IV Total 1112 ml # Voids 4 Laboratory Tests Test 12/07/17 08:10 White Blood Count 5.6 K/UL (4.8-10.8) Red Blood Count 4.02 M/UL (4.20-5.40) L Hemoglobin 12.3 G/DL (12.0-16.0) Hematocrit 36.1 % (37.0-47.0) L Mean Corpuscular Volume 90 FL (80-99) Mean Corpuscular Hemoglobin 30.6 PG (27.0-31.0) Mean Corpuscular Hemoglobin Concent 34.0 G/DL (32.0-36.0) Red Cell Distribution Width 11.6 % (11.6-14.8) Platelet Count 352 K/UL (150-450) Mean Platelet Volume 5.4 FL (6.5-10.1) L Neutrophils (%) (Auto) 38.4 % (45.0-75.0) L Lymphocytes (%) (Auto) 48.9 % (20.0-45.0) H Monocytes (%) (Auto) 9.6 % (1.0-10.0) Eosinophils (%) (Auto) 1.5 % (0.0-3.0) Basophils (%) (Auto) 1.6 % (0.0-2.0) Activated Partial Thromboplast Time 32 SEC (23-33) Sodium Level 139 MMOL/L (136-145) Potassium Level 3.8 MMOL/L (3.5-5.1) Chloride Level 105 MMOL/L (98-107) Carbon Dioxide Level 29 MMOL/L (21-32) Anion Gap 5 mmol/L (5-15) Blood Urea Nitrogen 13 mg/dL (7-18) Creatinine 0.7 MG/DL (0.55-1.30) Estimat Glomerular Filtration Rate > 60 mL/min (>60) Glucose Level 115 MG/DL (74-106) H Calcium Level 8.4 MG/DL (8.5-10.1) L Total Bilirubin 0.8 MG/DL (0.2-1.0) Aspartate Amino Transf (AST/SGOT) 11 U/L (15-37) L Alanine Aminotransferase (ALT/SGPT) 26 U/L (12-78) Alkaline Phosphatase 37 U/L (46-116) L Total Protein 6.5 G/DL (6.4-8.2) Albumin 3.5 G/DL (3.4-5.0) Globulin 3.0 g/dL Albumin/Globulin Ratio 1.2 (1.0-2.7) Amylase Level 61 U/L (25-115) Lipase 135 U/L (73-393) Height (Feet): 5 Height (Inches): 3.00 Weight (Pounds): 99 Medications Current Medications Medications (Trade) Dose Ordered Sig/Gracie Route PRN Reason Start Time Stop Time Status Last Admin Dose Admin Acetaminophen (Tylenol) 650 mg Q4H PRN ORAL fever (temp>100.5F) 12/06/17 14:30 01/05/18 14:29 Al Hydroxide/Mg Hydroxide (Mylanta II) 30 ml Q6H PRN ORAL dyspepsia 12/06/17 14:30 01/05/18 14:29 Dextrose (Dextrose 50%) 25 ml STAT PRN IV Hypoglycemia 12/06/17 14:30 01/05/18 14:29 Dextrose (Dextrose 50%) 50 ml STAT PRN IV Hypoglycemia 12/06/17 14:45 01/05/18 14:44 Dextrose/Sodium Chloride 1,000 ml @ 75 mls/hr [id number] IV 12/06/17 15:00 01/05/18 14:59 12/07/17 05:01 Diphenhydramine HCl (Benadryl) 25 mg Q6H PRN ORAL Itching/Pruritis 12/06/17 14:30 01/05/18 14:29 Heparin Sodium (Porcine) (Heparin 5000 units/ml) 5,000 units EVERY 12 HOURS SUBQ 12/06/17 21:00 01/05/18 20:59 12/07/17 09:57 Lorazepam (Ativan 2mg/ml 1ml) 1 mg Q4H PRN IV agitation 12/06/17 14:30 12/13/17 14:29 Metoclopramide HCl (Reglan) 10 mg Q6H PRN IVP severe [place] 12/06/17 14:30 01/05/18 14:29 Morphine Sulfate (Morphine Sulfate) 2 mg Q4H PRN IVP severe Pain (Pain Scale 7-10) 12/06/17 14:30 12/13/17 14:29 Nitroglycerin (Ntg) 0.4 mg Q5M X 3 DOSES PRN SL Prn Chest Pain 12/06/17 14:30 01/05/18 14:29 Ondansetron HCl (Zofran) 4 mg Q6H PRN IVP Nausea & Vomiting 12/06/17 14:30 01/05/18 14:29 Pantoprazole (Protonix) 40 mg DAILY IV 12/07/17 09:00 01/06/18 08:59 12/07/17 09:57 Polyethylene Glycol (Miralax) 17 gm HSPRN PRN ORAL Constipation 12/06/17 14:30 01/05/18 14:29 Promethazine HCl 25 mg/Dextrose 56 ml @ 110 mls/hr Q6H PRN IV Refractory N/V 12/06/17 14:30 01/05/18 14:29 Temazepam (Restoril) 15 mg HSPRN PRN ORAL Insomnia 12/06/17 14:30 12/13/17 14:29 Assessment/Plan Problem List: (1) Nausea, vomiting, and diarrhea ICD Codes: R11.2 - Nausea with vomiting, unspecified; R19.7 - Diarrhea, unspecified SNOMED: 4757973 (2) Cyclic vomiting syndrome ICD Codes: G43.A0 - Cyclical vomiting, not intractable SNOMED: 58611913 Qualifiers: Qualified Codes: G43.A1 - Cyclical vomiting, intractable Assessment/Plan symptomatic treatment iv fluids antiemetics Lexx Melissa MD December 07, 2017 13:33
--- NOTE | 2017-12-07 13:35 | Pulmonology Progress Note ---
Assessment/Plan Problems: (1) Nausea, vomiting, and diarrhea (2) Cyclic vomiting syndrome Assessment/Plan improving advance diet dc home Subjective ROS Limited/Unobtainable: No Interval Events: improving, was able to eat Allergies: Coded Allergies: AMOXICILLIN (Verified Allergy, Unknown, 11/22/17) PENICILLINS (Verified Allergy, Unknown, 11/22/17) Objective Last 24 Hour Vital Signs Date Time Temp Pulse Resp B/P (MAP) Pulse Ox O2 Delivery O2 Flow Rate FiO2 12/07/17 08:00 97.7 70 20 118/71 99 Room Air 97.7 12/07/17 04:00 97.5 68 19 94/52 98 97.5 12/07/17 00:00 97.9 62 19 123/76 100 97.9 12/06/17 21:00 98.2 82 20 105/68 98 98.2 12/06/17 17:00 97.5 97 20 103/68 98 Room Air 97.5 12/06/17 15:00 97 20 103/68 98 Room Air Intake and Output 12/06/17 12/07/17 19:00 07:00 Intake Total 1112 ml Balance 1112 ml Intake IV Total 1112 ml # Voids 4 General Appearance: WD/WN HEENT: atraumatic Respiratory/Chest: chest wall non-tender, lungs clear Cardiovascular: normal peripheral pulses, normal rate Abdomen: normal bowel sounds, no organomegaly Extremities: no cyanosis Skin: no rash Laboratory Tests 12/07/17 08:10: White Blood Count 5.6, Red Blood Count 4.02L, Hemoglobin 12.3, Hematocrit 36.1L , Mean Corpuscular Volume 90, Mean Corpuscular Hemoglobin 30.6, Mean Corpuscular Hemoglobin Concent 34.0, Red Cell Distribution Width 11.6, Platelet Count 352, Mean Platelet Volume 5.4L, Neutrophils (%) (Auto) 38.4L, Lymphocytes (%) (Auto) 48.9H, Monocytes (%) (Auto) 9.6, Eosinophils (%) (Auto) 1.5, Basophils (%) (Auto) 1.6, Activated Partial Thromboplast Time 32, Sodium Level 139, Potassium Level 3.8, Chloride Level 105, Carbon Dioxide Level 29, Anion Gap 5, Blood Urea Nitrogen 13, Creatinine 0.7, Estimat Glomerular Filtration Rate > 60, Glucose Level 115H, Calcium Level 8.4L, Total Bilirubin 0.8, Aspartate Amino Transf (AST/SGOT) 11L, Alanine Aminotransferase (ALT/SGPT) 26, Alkaline Phosphatase 37L, Total Protein 6.5, Albumin 3.5, Globulin 3.0, Albumin/ Globulin Ratio 1.2, Amylase Level 61, Lipase 135 Current Medications Medications (Trade) Dose Ordered Sig/Gracie Route PRN Reason Start Time Stop Time Status Last Admin Dose Admin Acetaminophen (Tylenol) 650 mg Q4H PRN ORAL fever (temp>100.5F) 12/06/17 14:30 01/05/18 14:29 Al Hydroxide/Mg Hydroxide (Mylanta II) 30 ml Q6H PRN ORAL dyspepsia 12/06/17 14:30 01/05/18 14:29 Dextrose (Dextrose 50%) 25 ml STAT PRN IV Hypoglycemia 12/06/17 14:30 01/05/18 14:29 Dextrose (Dextrose 50%) 50 ml STAT PRN IV Hypoglycemia 12/06/17 14:45 01/05/18 14:44 Dextrose/Sodium Chloride 1,000 ml @ 75 mls/hr [id number] IV 12/06/17 15:00 01/05/18 14:59 12/07/17 05:01 Diphenhydramine HCl (Benadryl) 25 mg Q6H PRN ORAL Itching/Pruritis 12/06/17 14:30 01/05/18 14:29 Heparin Sodium (Porcine) (Heparin 5000 units/ml) 5,000 units EVERY 12 HOURS SUBQ 12/06/17 21:00 01/05/18 20:59 12/07/17 09:57 Lorazepam (Ativan 2mg/ml 1ml) 1 mg Q4H PRN IV agitation 12/06/17 14:30 12/13/17 14:29 Metoclopramide HCl (Reglan) 10 mg Q6H PRN IVP severe [place] 12/06/17 14:30 01/05/18 14:29 Morphine Sulfate (Morphine Sulfate) 2 mg Q4H PRN IVP severe Pain (Pain Scale 7-10) 12/06/17 14:30 12/13/17 14:29 Nitroglycerin (Ntg) 0.4 mg Q5M X 3 DOSES PRN SL Prn Chest Pain 12/06/17 14:30 01/05/18 14:29 Ondansetron HCl (Zofran) 4 mg Q6H PRN IVP Nausea & Vomiting 12/06/17 14:30 01/05/18 14:29 Pantoprazole (Protonix) 40 mg DAILY IV 12/07/17 09:00 01/06/18 08:59 12/07/17 09:57 Polyethylene Glycol (Miralax) 17 gm HSPRN PRN ORAL Constipation 12/06/17 14:30 01/05/18 14:29 Promethazine HCl 25 mg/Dextrose 56 ml @ 110 mls/hr Q6H PRN IV Refractory N/V 12/06/17 14:30 01/05/18 14:29 Temazepam (Restoril) 15 mg HSPRN PRN ORAL Insomnia 12/06/17 14:30 12/13/17 14:29 Lexx Melissa MD December 07, 2017 13:35
--- NOTE | 2017-12-07 13:43 | Diagnostic Imaging Report ---
Indication:Abdominal pain. Nausea vomiting Technique: Grayscale and duplex Doppler imaging of the abdomen performed. Comparison: 11/22/2017 Findings: The liver, demonstrated part of the pancreas, gallbladder, aorta and IVC, spleen appear unremarkable. There is scarring in the lower pole the right kidney suspected. There is a 1 cm left renal cyst suspected. There is no biliary ductal dilatation identified. Doppler evaluation of the main portal vein shows patency. There is no ascites. No hydronephrosis seen. Minimal post void residual noted within the bladder. CBD is 4 mm. Impression: No acute findings. Right renal scar Left renal cyst
--- NOTE | 2017-12-07 15:36 | Consultation ---
History of Present Illness General Date patient seen: December 07, 2017 Chief Complaint: Vomiting Referring physician: DAYO HEWITT Reason for Consultation: CYCLIC VOMITING SYNDROME Present Illness HPI 32 y/o F with hx of cyclic vomiting syndrome, substance abuse ([facility] cannabis use presents to ED on 12/06 with recurrent vomiting, unable to keep anything dome. Vomiting is non bloody, non bilious. + nausea all the time. +abd cramps. Per patient this all started about 1 month ago and since then has visited multiple hospitals with recurrent symptoms/ similar complains. Denies diarrhea Of note, patient admitted here from 11/22-11/27 for episodes of vomiting and diarrhea after smoking marijuana. Kept NPO initially and given IVFs. Seen by GI. Abd US done and was unremarkable. Started on PPI and given antiemetics. Afebrile, no leukocytosis. Abd US neg. off abx. Allergies: Coded Allergies: AMOXICILLIN (Verified Allergy, Unknown, 11/22/17) PENICILLINS (Verified Allergy, Unknown, 11/22/17) Medication History Scheduled Dicyclomine Hcl* (Dicyclomine Hcl*), 10 MG PO QID, (Reported) Hydroxyzine Pamoate* (Vistaril*), 50 MG ORAL EVERY 6 HOURS, (Reported) Metoclopramide Hcl* (Reglan*), 10 MG ORAL QID Metoclopramide Hcl* (Metoclopramide Hcl*), 10 MG ORAL EVERY 8 HOURS, (Reported) Pantoprazole* (Pantoprazole*), 40 MG ORAL DAILY, (Reported) Prochlorperazine Maleate* (Compazine*), 10 MG ORAL Q6H, (Reported) Scheduled PRN Ondansetron Odt* (Zofran Odt*), 4 MG ORAL Q6H PRN for Nausea & Vomiting Discontinued Medications Ondansetron Odt* (Zofran Odt*), 4 MG ORAL Q6H PRN for Nausea & Vomiting, ( Reported) Discontinued Reason: Therapy completed Patient History Healthcare decision maker Resuscitation status Full Code Advanced Directive on File No Patient History Narrative Pmhx: as above Shx: Denies: smoking Fhx: non contributory Review of Systems All Other Systems: negative except mentioned in HPI Physical Exam Physical Exam Narrative General Appearance: no apparent distress, alert, thin Head: normocephalic, atraumatic Eyes: bilateral eye PERRL, bilateral eye EOMI ENT: hearing grossly normal, normal pharynx Neck: full range of motion, supple, no meningismus Respiratory: chest non-tender, lungs clear, normal breath sounds Cardiovascular #1: regular rate, rhythm, no obvious murmur Gastrointestinal: normal bowel sounds, non tender, no mass, no organomegaly, non-distended Musculoskeletal: back normal, gait/station normal, normal range of motion Skin: warm/dry Last 24 Hour Vital Signs Date Time Temp Pulse Resp B/P (MAP) Pulse Ox O2 Delivery O2 Flow Rate FiO2 12/07/17 12:00 97.3 86 20 114/67 100 Room Air 97.3 12/07/17 08:00 97.7 70 20 118/71 99 Room Air 97.7 12/07/17 04:00 97.5 68 19 94/52 98 97.5 12/07/17 00:00 97.9 62 19 123/76 100 97.9 12/06/17 21:00 98.2 82 20 105/68 98 98.2 12/06/17 17:00 97.5 97 20 103/68 98 Room Air 97.5 Intake and Output 12/06/17 12/07/17 19:00 07:00 Intake Total 1112 ml Balance 1112 ml Intake IV Total 1112 ml # Voids 4 Laboratory Tests Test 12/07/17 08:10 12/07/17 14:35 White Blood Count 5.6 K/UL (4.8-10.8) Red Blood Count 4.02 M/UL (4.20-5.40) L Hemoglobin 12.3 G/DL (12.0-16.0) Hematocrit 36.1 % (37.0-47.0) L Mean Corpuscular Volume 90 FL (80-99) Mean Corpuscular Hemoglobin 30.6 PG (27.0-31.0) Mean Corpuscular Hemoglobin Concent 34.0 G/DL (32.0-36.0) Red Cell Distribution Width 11.6 % (11.6-14.8) Platelet Count 352 K/UL (150-450) Mean Platelet Volume 5.4 FL (6.5-10.1) L Neutrophils (%) (Auto) 38.4 % (45.0-75.0) L Lymphocytes (%) (Auto) 48.9 % (20.0-45.0) H Monocytes (%) (Auto) 9.6 % (1.0-10.0) Eosinophils (%) (Auto) 1.5 % (0.0-3.0) Basophils (%) (Auto) 1.6 % (0.0-2.0) Activated Partial Thromboplast Time 32 SEC (23-33) Sodium Level 139 MMOL/L (136-145) Potassium Level 3.8 MMOL/L (3.5-5.1) Chloride Level 105 MMOL/L (98-107) Carbon Dioxide Level 29 MMOL/L (21-32) Anion Gap 5 mmol/L (5-15) Blood Urea Nitrogen 13 mg/dL (7-18) Creatinine 0.7 MG/DL (0.55-1.30) Estimat Glomerular Filtration Rate > 60 mL/min (>60) Glucose Level 115 MG/DL (74-106) H Calcium Level 8.4 MG/DL (8.5-10.1) L Total Bilirubin 0.8 MG/DL (0.2-1.0) Aspartate Amino Transf (AST/SGOT) 11 U/L (15-37) L Alanine Aminotransferase (ALT/SGPT) 26 U/L (12-78) Alkaline Phosphatase 37 U/L (46-116) L Total Protein 6.5 G/DL (6.4-8.2) Albumin 3.5 G/DL (3.4-5.0) Globulin 3.0 g/dL Albumin/Globulin Ratio 1.2 (1.0-2.7) Amylase Level 61 U/L (25-115) Lipase 135 U/L (73-393) Urine Opiates Screen Negative (NEGATIVE) Urine Barbiturates Screen Negative (NEGATIVE) Phencyclidine (PCP) Screen Negative (NEGATIVE) Urine Amphetamines Screen Negative (NEGATIVE) Urine Benzodiazepines Screen Negative (NEGATIVE) Urine Cocaine Screen Negative (NEGATIVE) Urine Marijuana (THC) Screen Positive (NEGATIVE) H Height (Feet): 5 Height (Inches): 3.00 Weight (Pounds): 99 Medications Current Medications Medications (Trade) Dose Ordered Sig/Gracie Route PRN Reason Start Time Stop Time Status Last Admin Dose Admin Acetaminophen (Tylenol) 650 mg Q4H PRN ORAL fever (temp>100.5F) 12/06/17 14:30 01/05/18 14:29 Al Hydroxide/Mg Hydroxide (Mylanta II) 30 ml Q6H PRN ORAL dyspepsia 12/06/17 14:30 01/05/18 14:29 Dextrose (Dextrose 50%) 25 ml STAT PRN IV Hypoglycemia 12/06/17 14:30 01/05/18 14:29 Dextrose (Dextrose 50%) 50 ml STAT PRN IV Hypoglycemia 12/06/17 14:45 01/05/18 14:44 Dextrose/Sodium Chloride 1,000 ml @ 75 mls/hr [id number] IV 12/06/17 15:00 01/05/18 14:59 12/07/17 05:01 Diphenhydramine HCl (Benadryl) 25 mg Q6H PRN ORAL Itching/Pruritis 12/06/17 14:30 01/05/18 14:29 Heparin Sodium (Porcine) (Heparin 5000 units/ml) 5,000 units EVERY 12 HOURS SUBQ 12/06/17 21:00 01/05/18 20:59 12/07/17 09:57 Lorazepam (Ativan 2mg/ml 1ml) 1 mg Q4H PRN IV agitation 12/06/17 14:30 12/13/17 14:29 Metoclopramide HCl (Reglan) 10 mg Q6H PRN IVP severe [place] 12/06/17 14:30 01/05/18 14:29 Morphine Sulfate (Morphine Sulfate) 2 mg Q4H PRN IVP severe Pain (Pain Scale 7-10) 12/06/17 14:30 12/13/17 14:29 Nitroglycerin (Ntg) 0.4 mg Q5M X 3 DOSES PRN SL Prn Chest Pain 12/06/17 14:30 01/05/18 14:29 Ondansetron HCl (Zofran) 4 mg Q6H PRN IVP Nausea & Vomiting 12/06/17 14:30 01/05/18 14:29 Pantoprazole (Protonix) 40 mg DAILY IV 12/07/17 09:00 01/06/18 08:59 12/07/17 09:57 Polyethylene Glycol (Miralax) 17 gm HSPRN PRN ORAL Constipation 12/06/17 14:30 01/05/18 14:29 Promethazine HCl 25 mg/Dextrose 56 ml @ 110 mls/hr Q6H PRN IV Refractory N/V 12/06/17 14:30 01/05/18 14:29 Temazepam (Restoril) 15 mg HSPRN PRN ORAL Insomnia 12/06/17 14:30 12/13/17 14:29 Assessment/Plan Assessment/Plan Abx: None Assessment: Recurrent nausea/vomiting- no evidence of infectious process -hx of Cyclic vomiting syndrome w/ multiple hosp admissions -Abd US; No acute findings. Right renal scar. Left renal cyst Afebrile, no leukocytosis -u/a neg hx substance abuse/cannabis use Plan: -Continue to monitor off abx -f/u cx -Monitor CBC/BMP, temperatures -GI f/u -aspiration precautions Thank you for this consultation. Will continue to follow along with you. Discussed with Ekta Mahan M.D. December 07, 2017 15:36
--- NOTE | 2017-12-07 17:45 | History and Physical Report ---
DATE OF ADMISSION: 12/06/2017 TIME: 2 p.m. CONSULTANTS: 1. Lexx Melissa M.D. 2. Antonio Negro M.D. CHIEF COMPLAINT: Cyclic vomiting for three weeks. BRIEF HISTORY: This is a 32-year-old female, who lives at home, presents with cyclic vomiting for three weeks. Apparently, she has been smoking cigarettes ___ marijuana and stopped abruptly about three weeks ago and became nauseous and started vomiting throughout. She came to [facility], diagnosed with the above, and admitted to medical floor for further treatment. Currently, calm in bed, feeling much better, eating, no complaint. REVIEW OF SYSTEMS: No chest pain. No shortness of breath. Slight nausea and vomiting. No diarrhea. PAST MEDICAL HISTORY: Nothing. PAST SURGICAL HISTORY: Nothing. MEDICATIONS: Include Protonix, heparin, Tylenol, morphine, MiraLAX, Zofran, Restoril, Benadryl, nitroglycerin, lorazepam, and promethazine. ALLERGIES: Amoxicillin and penicillin. SOCIAL HISTORY: Positive smoking. No alcohol. No intravenous drug abuse. Positive marijuana use. PHYSICAL EXAMINATION: GENERAL: Calm in bed, oriented x3, and in no acute distress. VITAL SIGNS: Temperature is 97, pulse 70, respirations 20, and blood pressure 118/71. CARDIOVASCULAR: No murmurs. LUNGS: Distant and clear. ABDOMEN: Bowel sounds positive. Nontender. Nondistended. EXTREMITIES: No cyanosis, clubbing, or edema. NEUROLOGIC: Cranial nerves II through XII are grossly intact. Deep tendon reflex 2+/4. Muscle strength 5/5. LABORATORY AND DIAGNOSTIC DATA: Labs, at this time, CBC is normal. BMP shows glucose 115. AST 11 and alkaline phosphatase 37, otherwise BMP is normal. PTT is 32. Urinalysis show 1+ leukocyte esterase. ASSESSMENT: 1. Cyclic vomiting. 2. History of drug use. 3. Urinary tract infection. PLAN: 1. Continue previous medications. 2. Zofran p.r.n. 3. Dietary followup. 4. Antibiotics per Infectious Disease. 5. Dr. Negro, Dr. Melissa, and Dr. Bernardo to consult. 6. CBC and BMP in the morning. Mark De Luna D.O. DR: ERIC JOB#: [id number] CC:
--- NOTE | 2017-12-09 15:10 | Discharge Summary ---
Discharge Summary Hospital Course Date of Admission Dec 06, 2017 at 14:22 Date of Discharge December 07, 2017 at 16:20 Admitting Diagnosis persistant nausea, vomiting HPI Manda Gomez is a 32 year old female who was admitted on Dec 06, 2017 at 14:22 for Persistant Nausea Vomiting Hospital Course [id number] Discharge Discharge Disposition Patient was discharged to Home (01) Ann Mayorga NP December 09, 2017 15:10
--- NOTE | 2017-12-09 19:16 | Discharge Summary 2 SIG ---
DATE OF ADMISSION: 12/06/2017 DATE OF DISCHARGE: 12/07/2017 CONSULTANTS: 1. Mark De Luna D.O. 2. Antonio Negro M.D. BRIEF HOSPITAL COURSE: The patient is a 32-year-old female with history of cyclic vomiting syndrome, presented to ED for complaints of vomiting that started for a month. The patient has been to numerous hospitals and was recently discharged. She was complaining unable to keep anything down. Vomiting is nonbloody and nonbilious. She felt nauseous all the time with abdominal cramps. No diarrhea. She is currently at a [facility] abuse for marijuana. On evaluation at ED, vitals were stable. She was given IV fluids. She was given Phenergan and Haldol. After multiple re-evaluations and attempts of improvement, the patient continued to have discomfort. She was then admitted for cyclic vomiting syndrome. Urine toxicology done was positive for marijuana. She was given Zofran and was placed on Protonix. She was given IV fluids. Abdominal ultrasound was done and showed no acute findings. Diet was advanced. Symptoms resolved and the patient was eventually discharged home. FINAL DIAGNOSES: 1. Cyclic vomiting syndrome. 2. Nausea and vomiting. 3. Marijuana use. DISPOSITION: The patient was discharged home. DISCHARGE MEDICATIONS: Refer to medication list. DISCHARGE INSTRUCTIONS: Follow up with PCP in a week. Lexx Melissa M.D. I have been assigned to dictate discharge summary on this account and I was not involved in the patient's management. Ann Mayorga N.P. DR: DEANN JOB#: [id number] CC:
== END 2017-12-07 16:20 | disposition home or self-care (01) | DRG 54 ==
LOC: EDBD 05:55 → EMR 06:09 → 4E 13:35 → INTOOBSV 13:35 → EDBEDREQ 13:36 → OBSVTOIN 14:22 → EDBEDREQ 14:34
DX: G43.A0 Cyclical vomiting, in migraine, not intractable (principal); N39.0 Urinary tract infection, site not specified; F12.21 Cannabis dependence, in remission; Z88.0 Allergy status to penicillin; Z87.891 Personal history of nicotine dependence; R19.7 Diarrhea, unspecified
CPT/HCPCS: 36415; 76700; 80048; 80053; 80307; 81003; 81025; 82150; 83690; 85025; 85730; 99285; J2765

== ENCOUNTER → 2017-12-11 | Emergency (ER) | payer MEDICAID ==
[~2017-12-11] VITALS: Ht 160 cm; Wt 45.4 kg
[~2017-12-11] MED LIST changes: +DICYCLOMINE HCL10 MG PO; +Ketorolac 60mg Inj IM ONE; +METOCLOPRAMIDE H5 M1 ORAL; +PANTOPRAZOLE SO40 MG ORAL; +PROCHLORPERAZINE5 MG ORAL; +VISTARIL50 MG ORAL; +ZOFRAN4 M1 ORAL
[2017-12-11 19:08] VITALS: BP 149/99
--- NOTE | 2017-12-12 07:50 | Emergency Room Report ---
History of Present Illness General Chief Complaint: Abdominal Pain Source: Patient Present Illness HPI Patient denies with complaints of nausea and vomiting Initially presents somewhat histrionic Denies any fevers Also felt cramping diffusely in the epigastric area Denies any chest pain or shortness of breath denies any dysuria frequency Denies any recent travel Patient has had recent hospitalization Allergies: Coded Allergies: AMOXICILLIN (Verified Allergy, Unknown, 11/22/17) PENICILLINS (Verified Allergy, Unknown, 11/22/17) Patient History Past Medical History: see triage record Pertinent Family History: none Last Menstrual Period: 2-3 weeks ago Now: No Reviewed Nursing Documentation: PMH: Agreed; PSxH: Agreed Nursing Documentation-PMH Past Medical History: No History, Except For Hx Gastrointestinal Problems: Yes Review of Systems All Other Systems: negative except mentioned in HPI Physical Exam Vital Signs Date Time Temp Pulse Resp B/P (MAP) Pulse Ox O2 Delivery O2 Flow Rate FiO2 12/11/17 17:50 97.5 87 16 149/99 97 Room Air 97.5 Sp02 EP Interpretation: reviewed, normal General Appearance: mild distress - Patient initially is moaning in discomfort Head: normocephalic, atraumatic Eyes: bilateral eye PERRL, bilateral eye EOMI ENT: hearing grossly normal, normal pharynx, TMs + canals normal, uvula midline Neck: full range of motion, supple, no meningismus, no bony tend Respiratory: lungs clear, normal breath sounds, no rhonchi, no respiratory distress, no retraction, no accessory muscle use Cardiovascular #1: normal peripheral pulses, regular rate, rhythm, no edema, no gallop, no JVD, no murmur Gastrointestinal: normal bowel sounds, non tender, soft, no mass, no organomegaly, non-distended, no guarding, no hernia, no pulsatile mass, no rebound Genitourinary: no CVA tenderness Musculoskeletal: normal inspection Neurologic: oriented x3, responsive, office automation clerk III-XII nml as tested, motor strength/ tone normal, sensory intact Psychiatric: mood/affect normal Skin: normal color, no rash, warm/dry, palpation normal Lymphatic: normal inspection, no adenopathy Medical Decision Making Diagnostic Impression: Primary Impression: vomiting ER Course Upon initial arrival patient is uncomfortable After being placed onto a gurney, patient resting comfortably without any signs of distress Patient has had several recent presentations with extensive workup and intervention At this time patient is hemodynamically stable Her clinical exam was benign Patient was provided medication for discomfort and nausea And after resting comfortably in the emergency room is appropriate for further outpatient follow-up Unfortunately we have not been able to obtain the specific pathology of her discomfort However after extensive inpatient care patient requires improved outpatient follow-up Last Vital Signs Date Time Temp Pulse Resp B/P (MAP) Pulse Ox O2 Delivery O2 Flow Rate FiO2 12/11/17 19:08 207.5 16 149/99 97 Room Air 207.5 12/11/17 17:50 87 Status: improved Disposition: HOME, SELF-CARE Condition: Improved Scripts Ondansetron (Zofran) 4 Mg Tablet 4 MG ORAL Q6H PRN for Nausea & Vomiting, #10 TAB Prov: Tor Stahl DO 12/11/17 Referrals: [facility]ERR[facility] (PCP) Patient Instructions: Abdominal Pain, Adult Additional Instructions: Patient is provided with the discharge instructions notified to follow up with primary doctor in the next 2-3 days otherwise return to the er with any worsening symptoms. Please note that this report is being documented using [employer] technology. This can lead to erroneous entry secondary to incorrect interpretation by the dictating instrument. Tor Stahl DO December 12, 2017 07:50
== END | disposition home or self-care (01) ==
LOC: EMR 18:25
DX: R11.2 Nausea with vomiting, unspecified (principal); Z88.1 Allergy status to other antibiotic agents; Z88.0 Allergy status to penicillin
CPT/HCPCS: 96372; 99283